=== PATIENT | male | born 1975 | race Caucasian/White ===

== ENCOUNTER 2018-11-07 06:46 | Emergency (ER) | payer OTHER ==
[~2018-11-07] VITALS: Ht 180.3 cm; Wt 97.1 kg
--- OUTSIDE RECORDS SUMMARY | 2018-11-07 06:55 | XMS REPORT | Referral Summary ---
Author Author [facility] Organization [facility] Address Unknown Phone Unavailable Care Team Providers Care Justowriter Operator Name Role Phone Kenneth Cuevas PCP Encounter VC Date(s): 04/28/16 - 04/28/16 [facility] [address] [place], [place] [address] Discharge Diagnosis: Contact dermatitis Discharge Disposition: 01-Home or Self Care Attending Physician: Pari Jones APRN Attending Physician: Provider, Immediate Care Admitting Physician: Provider, Immediate Care Vital Signs Most recent to 1 oldest [Reference Range]: Temperature Oral 36.8 degC [35.8-37.3 degC] (04/28/16 7:02 PM) Peripheral Pulse 71 bpm Rate [60-100 bpm] (04/28/16 7:02 PM) Respiratory Rate 16 br/min [14-20 br/min] (04/28/16 7:02 PM) Blood Pressure 123/82 mmHg [90-140/60-90 mmHg] (04/28/16 7:02 PM) SpO2 98 % (04/28/16 7:02 PM) Problem List Condition Effective Dates Status Health Status Informant Acid Active patient reflux(Confirmed) HTN Active patient (hypertension)(Confi rmed) Kidney Active patient stones(Confirmed) Tobacco Active patient user(Confirmed) Lt Ureteral 2009 Active Calculus(Confirmed)1 1Cystoscopy; Lt Ureteroscopy; Lithotrippsy- 773267. Allergies, Adverse Reactions, Alerts Substance Reaction Severity Status Lortab 2.5/500 N/V Mild Active meperidine Eczema (rash) Active penicillin Adverse Reaction Active Medications Calcium 600+D tabs, Oral, TID, 0 Refill(s) Start Date: 07/04/14 Status: Ordered Flomax 0.4 mg oral capsule 0.4 mg 1 caps, Oral, Daily, # 20 caps, 0 Refill(s) Start Date: 03/30/15 Status: Ordered Flomax 0.4 mg oral capsule 0.4 mg 1 caps, Oral, Daily, # 7 caps, 0 Refill(s), Pharmacy: [facility] # [id number], 1 caps Oral Daily,x7 days Start Date: 02/01/16 Stop Date: 02/08/16 Status: Ordered pantoprazole Daily, 0 Refill(s) Start Date: 07/04/14 Status: Ordered potassium citrate Oral, 0 Refill(s) Start Date: 07/04/14 Status: Ordered triamcinolone 0.5% topical cream 1 blu, Topical, TID, X 14 days, # 60 g, 0 Refill(s), Pharmacy: [facility] #[id number] Start Date: 04/28/16 Stop Date: 05/12/16 Status: Ordered Wellbutrin Oral, 0 Refill(s) Start Date: 07/04/14 Status: Ordered Results No data available for this section Immunizations No data available for this section Procedures Procedure Date Related Diagnosis Body Site Perc. Nephrostolithotomy L1 2013 Cystoscopy2 09/08/08 Appendectomy Knee joint operation Nephroscopic extraction of ureteric calculus without disintegration 1Perc. Nephrostolithotomy L/Tube/Stent Placed 2012. Left Staghorn Stone 2012. 2Cystoscopy; Lt Uretorscopy; Lithotripsy- 612012. Lt Ureteral Calculus 2008. Social History Social History Type Response Smoking Status Current every day smoker Assessment and Plan Extracted from: Title: Office Visit Note Author: Pari Jones APRN Date: 04/28/16 Assessment/Plan 1.Contact dermatitis Treatment in IC included Solu-Medrol 125 mg IM. Rx for triamcinolonecream to apply 3 times a day 14 days given with instructions on medication administration and side effects. Prescription hand hygiene and wound care. Follow-up or return for persistent or worsening symptoms. Questions were answered. Patient verbalized understanding of instructions and agreed plan. Patient left in stable condition. Ordered: methylPREDNISolone, 125 mg, IntraMuscular, Once, First Dose: 04/28/16 20:00:00 CDT, Stop Date: 04/28/16 20:00:00 CDT Office Visit Level 3 Est 88187
--- OUTSIDE RECORDS SUMMARY | 2018-11-07 06:55 | XMS REPORT | Referral Summary ---
Author Author [facility] Organization [facility] Address Unknown Phone Unavailable Care Team Providers Care Vegetable Farmer Name Role Phone Kenneth Cuevas PCP Encounter Date(s): 08/25/16 - 08/25/16 [facility] [address], [place] [address] Discharge Diagnosis: Abrasion of ear canal Discharge Disposition: 01-Home or Self Care Attending Physician: Radha Sheridan APRN Attending Physician: Provider, Immediate Care Admitting Physician: Provider, Immediate Care Vital Signs Most recent to 1 oldest [Reference Range]: Temperature Oral 36.9 degC [35.8-37.3 degC] (08/25/16 1:15 PM) Peripheral Pulse 89 bpm Rate [60-100 bpm] (08/25/16 1:15 PM) Blood Pressure 117/78 mmHg [90-140/60-90 mmHg] (08/25/16 1:15 PM) SpO2 97 % (08/25/16 1:15 PM) Problem List Condition Effective Dates Status Health Status Informant Acid Active patient reflux(Confirmed) HTN Active patient (hypertension)(Confi rmed) Kidney Active patient stones(Confirmed) Tobacco Active patient user(Confirmed) Lt Ureteral 2009 Active Calculus(Confirmed)1 1Cystoscopy; Lt Ureteroscopy; Lithotrippsy- 647660. Allergies, Adverse Reactions, Alerts Substance Reaction Severity [...] Daily, # 7 caps, 0 Refill(s), Pharmacy: [facility] # [id number], 1 caps Oral Daily,x7 days Start Date: 02/01/16 Stop Date: 02/08/16 Status: Ordered pantoprazole Daily, 0 Refill(s) Start Date: 07/04/14 Status: Ordered potassium citrate Oral, 0 Refill(s) Start Date: 07/04/14 Status: Ordered Wellbutrin Oral, 0 Refill(s) Start Date: 07/04/14 Status: Ordered Zofran ODT 4 mg oral tablet, disintegrating 4 mg 1 tabs, Oral, q6hr, Nausea or Vomiting | as needed for nausea/vomiting, # 10 tabs, 0 Refill(s), Pharmacy: [facility] #[id number], 1 tabs Oral q6hr,PRN: Nausea or Vomiting | as needed for nausea/vomiting Start Date: 07/15/16 Status: Ordered Results No data available for this section Immunizations No data available for this section Procedures Procedure Date Related Diagnosis Body Site Perc. Nephrostolithotomy L1 2013 Cystoscopy2 09/08/08 Appendectomy Knee joint operation Nephroscopic extraction of ureteric calculus without disintegration 1Perc. Nephrostolithotomy L/Tube/Stent Placed 2012. Left Staghorn Stone 2012. 2Cystoscopy; Lt Uretorscopy; Lithotripsy- 969704. Lt Ureteral Calculus 2008. Social History Social History Type Response Smoking Status Current every day smoker Assessment and Plan Extracted from: Title: Office Visit Note Author: Radha Sheridan FUSE SPOOLER Date: 08/25/16 Assessment/Plan 1.Abrasion of ear canal discussed that i am unable to see abrasion but it seems that he someone cut his ear canal, maybe in his sleep. he can use saline to soften the blood and then it will come out on its own or he can leave it alone. antihistamine for the fluids behind TM. Diagnosis and treatment discussed. Patient advised to follow-up with PCP in 2-3 days if symptoms do not improve. If symptoms worsen at any time, patient will go to the nearest ER for further evaluation. Patient stable upon discharge, alert and orientated with no apparent distress, all questions answered, and indicated understanding of discharge instructions. Ordered: Office Visit Level 3 Est 64116"
--- OUTSIDE RECORDS SUMMARY | 2018-11-07 06:55 | XMS REPORT | Referral Summary ---
Author Author [facility] Organization [facility] Address Unknown Phone Unavailable Care Team Providers Care Pricing Actuary Name Role Phone Kenneth Cuevas PCP Encounter VC Date(s): 01/26/17 - 01/26/17 [facility] [address] [place] [address] Discharge Disposition: Vital Signs Most recent to 1 oldest [Reference Range]: Temperature Oral 36.6 degC [35.8-37.3 degC] (01/26/17 1:18 AM) Peripheral Pulse 112 bpm Rate [60-100 bpm] *HI* (01/26/17 1:18 AM) Respiratory Rate 16 br/min [14-20 br/min] (01/26/17 1:18 AM) Blood Pressure 137/90 mmHg [90-140/60-90 mmHg] (01/26/17 1:18 AM) SpO2 100 % (01/26/17 1:18 AM) Problem List Condition Effective Dates Status Health Status Informant Acid Active patient reflux(Confirmed) HTN Active patient (hypertension)(Confi rmed) Kidney Active patient stones(Confirmed) Tobacco Active patient user(Confirmed) Lt Ureteral 2009 Active Calculus(Confirmed)1 1Cystoscopy; Lt Ureteroscopy; Lithotrippsy- 810523. Allergies, Adverse Reactions, Alerts Substance Reaction Severity Status Lortab 2.5/500 N/V Mild Active meperidine Eczema (rash) Active penicillin Adverse Reaction Active Medications Flomax 0.4 mg oral capsule 0.4 mg 1 caps, Oral, Daily, take after same meal each day/ Ethan Calle DO supervising physician, # 7 caps, 0 Refill(s) Start Date: 01/26/17 Status: Ordered ibuprofen 800 mg oral tablet 800 mg 1 tabs, Oral, TID, Pain, # 30 tabs, 0 Refill(s) Start Date: 01/26/17 Status: Ordered ondansetron 4 mg oral tablet 4 mg 1 tabs, Oral, q4hr, Nausea or Vomiting, # 12 tabs, 0 Refill(s) Start Date: 01/26/17 Status: Ordered pantoprazole Daily, 0 Refill(s) Start Date: 07/04/14 Status: Ordered Percocet 7.5/325 oral tablet 1 tabs, Oral, q4hr, as needed for pain, Ethan Calle DO supervising physician/ not to exceed 8 tablets/day, # 24 tabs, 0 Refill(s) Start Date: 01/26/17 Status: Ordered Results No data available for this section Immunizations No data available for this section Procedures Procedure Date Related Diagnosis Body Site Perc. Nephrostolithotomy L1 2013 Cystoscopy2 09/08/08 Appendectomy Knee joint operation Nephroscopic extraction of ureteric calculus without disintegration 1Perc. Nephrostolithotomy L/Tube/Stent Placed 2012. Left Staghorn Stone 2012. 2Cystoscopy; Lt Uretorscopy; Lithotripsy- 583172. Lt Ureteral Calculus 2008. Social History Social History Type Response Smoking Status Current every day smoker Assessment and Plan No data available for this section
--- OUTSIDE RECORDS SUMMARY | 2018-11-07 06:55 | XMS REPORT | Referral Summary ---
Author Author [facility] Organization [facility] Address Unknown Phone Unavailable Care Team Providers Care Technical Aid Name Role Phone Kenneth Cuevas PCP Encounter VC Date(s): 10/24/16 - 10/24/16 [facility] [address] [place] [address] [facility] Discharge Diagnosis: Pain Discharge Disposition: 01-Home or Self Care Attending Physician: Provider, Immediate Care Attending Physician: Nya Carmen PA-C Admitting Physician: Provider, Immediate Care Vital Signs Most recent to 1 oldest [Reference Range]: Temperature Oral 36 degC [35.8-37.3 degC] (10/24/16 1:29 PM) Peripheral Pulse 68 bpm Rate [60-100 bpm] (10/24/16 1:29 PM) Respiratory Rate 16 br/min [14-20 br/min] (10/24/16 1:29 PM) Blood Pressure 131/91 mmHg [90-140/60-90 mmHg] (10/24/16 1:29 PM) SpO2 98 % (10/24/16 1:29 PM) Problem List Condition Effective Dates Status Health Status Informant Acid Active patient reflux(Confirmed) HTN Active patient (hypertension)(Confi rmed) Kidney Active patient stones(Confirmed) Tobacco Active patient user(Confirmed) Lt Ureteral 2009 Active Calculus(Confirmed)1 1Cystoscopy; Lt Ureteroscopy; Lithotrippsy- 539916. Allergies, Adverse Reactions, Alerts Substance Reaction Severity [...] Daily, # 7 caps, 0 Refill(s), Pharmacy: [facility] # [id number], 1 caps Oral Daily,x7 days Start Date: [...] nausea/vomiting, # 10 tabs, 0 Refill(s), Pharmacy: [facility] #[id number], 1 tabs Oral q6hr,PRN: Nausea or Vomiting | as needed for nausea/vomiting Start Date: 07/15/16 Status: Ordered Results Urinalysis Most recent to 1 oldest [Reference Range]: Leukocytes Urine Negative Dipstick (10/24/16 1:39 PM) Nitrite Urine Negative Dipstick (10/24/16 1:39 PM) Urobilinogen Urine 0.2 mg/dl Dipstick (10/24/16 1:39 PM) Protein Urine 1+ (30 mg/dl) Dipstick (10/24/16 1:39 PM) pH Urine Dipstick 6 (10/24/16 1:39 PM) Ketones Urine Negative Dipstick (10/24/16 1:39 PM) Blood Urine Dipstick Small (10/24/16 1:39 PM) Bilirubin Urine Negative Dipstick (10/24/16 1:39 PM) Specific [place] 1.025 Urine Dipstick (10/24/16 1:39 PM) Glucose Urine Negative Dipstick (10/24/16 1:39 PM) Urine Color Urine Yellow Dipstick (10/24/16 1:39 PM) Urine Appearance Clear Urine Dipstick (10/24/16 1:39 PM) Immunizations No data available for this section Procedures Procedure Date Related Diagnosis Body Site Perc. Nephrostolithotomy L1 2013 Cystoscopy2 09/08/08 Appendectomy Knee joint operation Nephroscopic extraction of ureteric calculus without disintegration 1Perc. Nephrostolithotomy L/Tube/Stent Placed 2012. Left Staghorn Stone 2012. 2Cystoscopy; Lt Uretorscopy; Lithotripsy- 347081. Lt Ureteral Calculus 2008. Social History Social History Type Response Smoking Status Current every day smoker Assessment and Plan Extracted from: Title: Office Visit Note Author: Nya Carmen PA-C Date: 10/24/16 Assessment/Plan I reviewed my findings and impressions and the CT results with patient and family at length. Iexplained that there are nonobstructive renal calculi present but no evidence of a ureteral calculus, or hydroureteronephrosis. I explained that it is possible he could have passed a stone is having residual ureteral colic from it. Patient states that he feels the exact same as he had in the past with a ureteral stone. Based on my testicular exam the pain does not appear to be a testicular in origin but of referred pain. Patient will continue symptomatic management over the weekend and if his pain worsens or he develops new symptoms he will contact his urologist on-call or go to the emergency department. He and family are in agreement with this plan and he is dismissed in stable condition. Abdominal pain Ordered: Office Visit Level 4 Est 97348 Hematuria Ordered: Office Visit Level 4 Est 94472 Hx of renal colic Ordered: Office Visit Level 4 Est 41362 Pain"
--- OUTSIDE RECORDS SUMMARY | 2018-11-07 06:55 | XMS REPORT | Referral Summary ---
Author Author [facility] Organization [facility] Address Unknown Phone Unavailable Care Team Providers Care County Engineer Name Role Phone Kenneth Cuevas PCP Encounter VC Date(s): 04/03/15 - 04/03/15 [facility] [address] [place] [address] [facility] Discharge Diagnosis: Nephrolithiasis Discharge Disposition: 01-Home or Self Care Attending Physician: Provider, Immediate Care Admitting Physician: Provider, Immediate Care Vital Signs Most recent to 1 oldest [Reference Range]: Temperature Oral 36.7 degC [35.8-37.3 degC] (04/03/15 8:40 AM) Peripheral Pulse 75 bpm Rate [60-100 bpm] (04/03/15 8:40 AM) Blood Pressure 128/78 mmHg [90-140/60-90 mmHg] (04/03/15 8:40 AM) SpO2 97 % (04/03/15 8:40 AM) Problem List Condition Effective Dates Status Health Status Informant Acid Active patient reflux(Confirmed) HTN Active patient (hypertension)(Confi rmed) Kidney Active patient stones(Confirmed) Tobacco Active patient user(Confirmed) Lt Ureteral 2009 Active Calculus(Confirmed)1 1Cystoscopy; Lt Ureteroscopy; Lithotrippsy- 154804. Allergies, Adverse Reactions, Alerts Substance Reaction Severity Status Lortab 2.5/500 N/V Mild Active meperidine Eczema (rash) Active penicillin Adverse Reaction Active Medications Calcium 600+D tabs, Oral, TID, 0 Refill(s) Start Date: 07/04/14 Status: Ordered Flomax 0.4 mg oral capsule 0.4 mg 1 caps, Oral, Daily, # 20 caps, 0 Refill(s) Start Date: 03/30/15 Status: Ordered pantoprazole Daily, 0 Refill(s) Start [...] Staghorn Stone 2012. 2Cystoscopy; Lt Uretorscopy; Lithotripsy- 015395. Lt Ureteral Calculus 2008. Social History Social History Type Response Smoking Status Current every day smoker; Type: Cigarettes; Tobacco use per day: Pack Assessment and Plan Extracted from: Title: Office Visit Note Author: Andrew Mcdaniel PA-C Date: 04/03/15 Assessment/Plan 1.Nephrolithiasis CT scan shows a 5 mm stone in ureter, no hydronephrosis. Pain improved with Toradol IM.Pt instructed to follow-up with his urologist. Diagnosis and treatment discussed. If symptoms worsen at any time, patient will go to the nearest ER for further evaluation. Patient stable upon discharge, alert and orientated with no apparent distress, and indicated understanding of discharge instructions. Ordered: Office Visit Level 3 Est 72001 Kidney infection Ordered: CT Abdomen Pelvis w/o Contrast
--- OUTSIDE RECORDS SUMMARY | 2018-11-07 06:56 | XMS REPORT | Referral Summary ---
Author Author [facility] Organization [facility] Address Unknown Phone Unavailable Care Team Providers Care Etcher Machine Name Role Phone Kenneth Cuevas PCP Encounter VC Date(s): 11/15/17 - 11/15/17 [facility] [address] [place] [address] Encounter Diagnosis Urolithiasis (Discharge Diagnosis) - 11/15/17 Bilateral nephrolithiasis (Discharge Diagnosis) - 11/15/17 Discharge Disposition: 01-Home or Self Care Attending Physician: Matt Olmstead JR, MD Admitting Physician: Matt Olmstead JR, MD Vital Signs Most recent to 1 oldest [Reference Range]: Temperature Oral 36.7 degC [35.8-37.3 degC] (11/15/17 8:30 PM) Peripheral Pulse 82 bpm Rate [60-100 bpm] (11/15/17 9:52 PM) Respiratory Rate 18 br/min [14-20 br/min] (11/15/17 10:23 PM) Blood Pressure 136/81 mmHg [90-140/60-90 mmHg] (11/15/17 9:52 PM) SpO2 97 % (11/15/17 9:52 PM) Problem List Condition Effective Dates Status Health Status Informant Acid Active patient reflux(Confirmed) HTN Active patient (hypertension)(Confi rmed) Kidney Active patient stones(Confirmed) Tobacco Active patient user(Confirmed) Lt Ureteral 2009 Active Calculus(Confirmed)1 1Cystoscopy; Lt Ureteroscopy; Lithotrippsy- 387798. Allergies, Adverse Reactions, Alerts Substance Reaction Severity Status meperidine Eczema (rash) Active penicillin Adverse Reaction Active Lortab 2.5/500 N/V Mild Active Medications Keflex 500 mg oral capsule 500 mg 1 caps, Oral, QID, X 7 days, # 28 caps, 0 Refill(s) Start Date: 11/15/17 Stop Date: 11/22/17 Status: Ordered ketorolac 10 mg oral tablet 10 mg 1 tabs, Oral, QID, as needed for pain, not to exceed 40 mg/day and 5 days duration for all dose forms, # 4 tabs, 0 Refill(s) Start Date: 11/15/17 Stop Date: 11/22/17 Status: Ordered oxyCODONE 10 mg oral tablet 10 mg 1 tabs, Oral, q4hr, as needed for pain, # 14 tabs, 0 Refill(s) Start Date: 11/15/17 Stop Date: 11/22/17 Status: Ordered Zofran ODT 4 mg oral tablet, disintegrating 4 mg 1 tabs, Oral, q4hr, Nausea or Vomiting | as needed for nausea/vomiting, # 10 tabs, 0 Refill(s) Start Date: 11/15/17 Status: Ordered Results Hematology Most recent to 1 oldest [Reference Range]: WBC [4.8-10.8 11.1 10*3/uL 10*3/uL] *HI* (11/15/17 8:36 PM) RBC [4.60-6.20] 5.59 (11/15/17 8:36 PM) Hgb [14.0-18.0 16.7 gm/dL gm/dL] (11/15/17 8:36 PM) Hct [42.0-52.0 %] 49.4 % (11/15/17 8:36 PM) MCV [82.0-99.0 fL] 88.4 fL (11/15/17 8:36 PM) MCH [27.0-32.0 pg] 29.9 pg (11/15/17 8:36 PM) MCHC [32.0-36.0 33.8 gm/dL gm/dL] (11/15/17 8:36 PM) RDW [11.5-14.5 %] 13.4 % (11/15/17 8:36 PM) Platelet [150-400 330 10*3/uL 10*3/uL] (11/15/17 8:36 PM) MPV [9.4-12.3 fL] 9.6 fL (11/15/17 8:36 PM) Immature 0.4 % Granulocytes (11/15/17 8:36 PM) [0.0-1.0 %] Neutrophils [51-75 51 % %] (11/15/17 8:36 PM) Lymphocytes [20-46 35 % %] (11/15/17 8:36 PM) Monocytes [4-11 %] 10 % (11/15/17 8:36 PM) Eosinophils [0-4 %] 3 % (11/15/17 8:36 PM) Basophils [0-2 %] 0 % (11/15/17 8:36 PM) Neutro Absolute 5.65 [1.90-7.00] (11/15/17 8:36 PM) Lymph Absolute 3.93 [0.80-3.30] *HI* (11/15/17 8:36 PM) [place] Absolute 1.09 [0.30-1.00] *HI* (11/15/17 8:36 PM) Eos Absolute 0.37 [0.00-0.50] (11/15/17 8:36 PM) Baso Absolute 0.05 [0.00-0.20] (11/15/17 8:36 PM) Chemistry Most recent to 1 oldest [Reference Range]: Sodium Lvl [136-144 135 mEq/L mEq/L] *LOW* (11/15/17 8:36 PM) Potassium Lvl 3.4 mEq/L [3.6-5.1 mEq/L] *LOW* (11/15/17 8:36 PM) Chloride [99-109 102 mEq/L mEq/L] (11/15/17 8:36 PM) CO2 [22-32 mEq/L] 24 mEq/L (11/15/17 8:36 PM) AGAP [3-20 mEq/L] 9 mEq/L (11/15/17 8:36 PM) BUN [4-20 mg/dL] 13 mg/dL (11/15/17 8:36 PM) Glucose Lvl [70-100 148 mg/dL mg/dL] *HI* (11/15/17 8:36 PM) Creatinine Lvl 0.94 mg/dL [0.64-1.27 mg/dL] (11/15/17 8:36 PM) eGFR [>60 mL/min] >60 mL/min 1 (11/15/17 8:36 PM) Calcium Lvl 9.2 mg/dL [8.6-10.0 mg/dL] (11/15/17 8:36 PM) Albumin Lvl [3.5-4.8 4.3 gm/dL gm/dL] (11/15/17 8:36 PM) Total Protein 7.9 gm/dL [6.1-7.9 gm/dL] (11/15/17 8:36 PM) Globulin [1.9-4.3 3.6 gm/dL gm/dL] (11/15/17 8:36 PM) ALT [17-63 U/L] 61 U/L (11/15/17 8:36 PM) AST [15-41 U/L] 39 U/L (11/15/17 8:36 PM) Alk Phos [26-104 107 U/L U/L] *HI* (11/15/17 8:36 PM) Bili Total [0.2-1.2 0.7 mg/dL 2 mg/dL] (11/15/17 8:36 PM) Lipase Lvl [8-48 44 U/L U/L] (11/15/17 8:36 PM) 1Result Comment: Multiply eGFR results by 1.21 for race. 2Result Comment: Naproxen, specifically the metabolite O-desmethylnaproxen, may cause spurious elevation in Total Bilirubin levels. Urinalysis Most recent to 1 oldest [Reference Range]: UA Color Dk Yellow (11/15/17 9:04 PM) UA Appear Clear (11/15/17 9:04 PM) UA pH [5.0-8.0] 6.5 (11/15/17 9:04 PM) UA Leuk Est Trace [Negative] *ABN* (11/15/17 9:04 PM) UA Nitrite Negative [Negative] (11/15/17 9:04 PM) UA Protein Pos 1+ [Negative] *ABN* (11/15/17 9:04 PM) UA Glucose Negative [Negative] (11/15/17 9:04 PM) UA Ketones Negative [Negative] (11/15/17 9:04 PM) UA Urobilinogen Negative [<1.0] (11/15/17 9:04 PM) UA Bili [Negative] Negative (11/15/17 9:04 PM) UA Blood [Negative] Pos 3+ *ABN* (11/15/17 9:04 PM) UA Spec Grav 1.021 [1.003-1.030] (11/15/17 9:04 PM) Type Clean Catch (11/15/17 9:04 PM) UA WBC [0-4] 10-20 *ABN* (11/15/17 9:04 PM) UA RBC [0-2] 20-50 *ABN* (11/15/17 9:04 PM) Epithelial Cells 0-2 (11/15/17 9:04 PM) UA Bacteria Rare (11/15/17 9:04 PM) UA Mucous Present (11/15/17 9:04 PM) Immunizations No data available for this section Procedures Procedure Date Related Diagnosis Body Site Status Perc. Nephrostolithotomy L1 2012 Completed Cystoscopy2 09/08/08 Completed Appendectomy Completed Knee joint operation Completed Nephroscopic extraction of ureteric calculus Completed without disintegration 1Perc. Nephrostolithotomy L/Tube/Stent Placed 2012. Left Staghorn Stone 2012. 2Cystoscopy; Lt Uretorscopy; Lithotripsy- [id number]. Lt Ureteral Calculus 2008. Social History Social History Type Response Smoking Status Current every day smoker entered on: 07/15/16 Assessment and Plan No data available for this section"
--- OUTSIDE RECORDS SUMMARY | 2018-11-07 06:56 | XMS REPORT | Referral Summary ---
Author Author [facility] Organization [facility] Address Unknown Phone Unavailable Care Team Providers Care Red Hat Engineer Name Role Phone Kenneth Cuevas PCP Encounter [facility] [id number] Date(s): 12/04/14 - 12/04/14 [facility] [address] [place] [address] [phone] Discharge Diagnosis: Left ureteral calculus Final: CALCULUS OF URETER Final: HYDRONEPHROSIS Final: CALCULUS OF KIDNEY Final: TOBACCO USE DISORDER Discharge Disposition: 01-Home or Self Care Attending Physician: Matt Olmstead JR, MD Admitting Physician: Matt Olmstead JR, MD Vital Signs Most recent to 1 oldest [Reference Range]: Temperature Oral 36.6 degC [35.8-37.3 degC] (12/04/14 1:27 AM) Peripheral Pulse 94 bpm Rate [60-100 bpm] (12/04/14 2:45 AM) Respiratory Rate 20 br/min [14-20 br/min] (12/04/14 2:45 AM) Blood Pressure 117/79 mmHg [90-140/60-90 mmHg] (12/04/14 2:45 AM) SpO2 95 % (12/04/14 2:45 AM) Problem List Condition Effective Dates Status Health Status Informant Acid Active patient reflux(Confirmed) HTN Active patient (hypertension)(Confi rmed) Kidney Active patient stones(Confirmed) Tobacco Active patient user(Confirmed) Allergies, Adverse Reactions, Alerts Substance Reaction Severity [...] Refill(s) Start Date: 07/04/14 Status: Ordered Results Chemistry Most recent to 1 oldest [Reference Range]: Sodium Venous 142 mEq/L [136-144 mEq/L] (12/04/14 2:39 AM) Potassium Venous 3.3 mEq/L 1 [3.6-5.1 mEq/L] *LOW* (12/04/14 2:39 AM) Calcium Ionized 1.14 mmol/L Venous [1.19-1.41 *LOW* mmol/L] (12/04/14 2:39 AM) Total CO2 Venous 22 mEq/L [25-29 mEq/L] *LOW* (12/04/14 2:39 AM) HGB Venous NPT 14.6 gm/dL [14.0-18.0 gm/dL] (12/04/14 2:39 AM) HCT Venous 43.0 % [42.0-52.0 %] (12/04/14 2:39 AM) Glucose Venous 129 mg/dL [70-100 mg/dL] *HI* (12/04/14 2:39 AM) BUN Venous [4-20] 7 (12/04/14 2:39 AM) Creatinine Venous 1.0 mg/dL [0.7-1.2 mg/dL] (12/04/14 2:39 AM) Venous CL [99-109 102 mEq/L mEq/L] (12/04/14 2:39 AM) Anion Gap, Jesus 18 [3-20] (12/04/14 2:39 AM) 1Result Comment: This test was performed on a whole blood specimen. The presence or absence of hemolysis cannot be assessed. Hemolysis can falsely elevate potassium levels. Normals are for venous specimens only. Immunizations No data available for this section Procedures Procedure Date Related Diagnosis Body Site Appendectomy Knee joint operation Nephroscopic extraction of ureteric calculus without disintegration Social History Social History Type Response Smoking Status Current every day smoker; Type: Cigarettes; Tobacco use per day: Pack Assessment and Plan No data available for this section
--- OUTSIDE RECORDS SUMMARY | 2018-11-07 06:56 | XMS REPORT | Referral Summary ---
Author Author [facility] Organization [facility] Address Unknown Phone Unavailable Care Team Providers Care Financial Assistant Name Role Phone Kenneth Cuevas PCP Encounter Date(s): 04/13/16 - 04/13/16 [facility] [address] [place], [place] [address] Discharge Diagnosis: Bilateral otitis media Discharge Diagnosis: Pharyngitis Discharge Disposition: 01-Home or Self Care Attending Physician: Gia Felipe Attending Physician: Provider, Immediate Care Admitting Physician: Provider, Immediate Care Vital Signs Most recent to 1 oldest [Reference Range]: Temperature Oral 36.5 degC [35.8-37.3 degC] (04/13/16 9:33 AM) Peripheral Pulse 69 bpm Rate [60-100 bpm] (04/13/16 9:33 AM) Blood Pressure 126/78 mmHg [90-140/60-90 mmHg] (04/13/16 9:33 AM) SpO2 98 % (04/13/16 9:33 AM) Problem List Condition Effective Dates Status Health Status Informant Acid Active patient reflux(Confirmed) HTN Active patient (hypertension)(Confi rmed) Kidney Active patient stones(Confirmed) Tobacco Active patient user(Confirmed) Lt Ureteral 2009 Active Calculus(Confirmed)1 1Cystoscopy; Lt Ureteroscopy; Lithotrippsy- 902239. Allergies, Adverse Reactions, Alerts Substance Reaction Severity Status Lortab 2.5/500 N/V Mild Active meperidine Eczema (rash) Active penicillin Adverse Reaction Active Medications Calcium 600+D tabs, Oral, TID, 0 Refill(s) Start Date: 07/04/14 Status: Ordered cephalexin 500 mg oral capsule 500 mg 1 caps, Oral, q12hr, X 10 days, # 20 caps, 0 Refill(s), Pharmacy: [facility] #[id number], 1 caps Oral q12hr,x10 days Start Date: 04/13/16 Stop Date: 04/23/16 Status: Ordered Flomax 0.4 mg oral capsule 0.4 mg 1 caps, Oral, Daily, # 20 caps, 0 Refill(s) Start Date: 03/30/15 Status: Ordered Flomax 0.4 mg oral capsule 0.4 mg 1 caps, Oral, Daily, # 7 caps, 0 Refill(s), Pharmacy: [facility] # [id number], 1 caps Oral Daily,x7 days Start Date: [...] Staghorn Stone 2012. 2Cystoscopy; Lt Uretorscopy; Lithotripsy- [id number]. Lt Ureteral Calculus 2008. Social History Social History Type Response Smoking Status Current every day smoker Assessment and Plan Extracted from: Title: Office Visit Note Author: Gia Felipe Date: 04/13/16 Assessment/Plan 1.Bilateral otitis media - cephalexin as below - follow up with PCP as needed if not improving in next 2-3 days 2.Pharyngitis - no culture done as cephalexin will cover if it is strep but that is of low suspicion - tylenol/motrin as needed for pain/fever - Patient voiced understanding and agreed with treatment plan. Patient dismissed in stable condition. Orders: cephalexin, 500 mg 1 caps, Oral, q12hr, X 10 days, # 20 caps, 0 Refill (s), Pharmacy: [facility] #[id number], 1 caps Oral q12hr,x10 days
--- OUTSIDE RECORDS SUMMARY | 2018-11-07 06:56 | XMS REPORT | Referral Summary ---
Author Author [facility] Organization [facility] Address Unknown Phone Unavailable Care Team Providers Care Classified Ad Clerk Name Role Phone Kenneth Cuevas PCP Encounter [facility] [id number] Date(s): 02/03/16 - 02/03/16 [facility] [address] [place] [address] Discharge Diagnosis: Left nephrolithiasis Discharge Disposition: 01-Home or Self Care Attending Physician: Garret Muñoz MD Admitting Physician: Francesco Candelaria MD Vital Signs Most recent to 1 oldest [Reference Range]: Temperature Oral 36.6 degC [35.8-37.3 degC] (02/03/16 11:56 AM) Apical Heart Rate 76 bpm [60-100 bpm] (02/03/16 1:48 PM) Respiratory Rate 16 br/min [14-20 br/min] (02/03/16 1:48 PM) Blood Pressure 143/91 mmHg [90-140/60-90 mmHg] *HI* (02/03/16 11:56 AM) SpO2 97 % (02/03/16 11:56 AM) Problem List Condition Effective Dates Status Health Status Informant Acid Active patient reflux(Confirmed) HTN Active patient (hypertension)(Confi rmed) Kidney Active patient stones(Confirmed) Tobacco Active patient user(Confirmed) Lt Ureteral 2009 Active Calculus(Confirmed)1 1Cystoscopy; Lt Ureteroscopy; Lithotrippsy- 967968. Allergies, Adverse Reactions, Alerts Substance Reaction Severity [...] Daily, # 7 caps, 0 Refill(s), Pharmacy: [facility] # [id number], 1 caps Oral Daily,x7 days Start Date: 02/01/16 Stop Date: 02/08/16 Status: Ordered ketorolac 10 mg oral tablet 10 mg 1 tabs, Oral, TID, as needed for pain, not to exceed 40 mg/day and 5 days duration for all dose forms, X 5 days, # 15 tabs, 0 Refill(s) Start Date: 02/03/16 Stop Date: 02/08/16 Status: Ordered pantoprazole Daily, 0 Refill(s) Start Date: 07/04/14 Status: Ordered Percocet 5/325 oral tablet See Instructions, as needed for pain, take 1 to 2 tabs Oral q6hr, # 30 tabs, 0 Refill(s) Start Date: 02/01/16 Stop Date: 02/05/16 Status: Ordered potassium citrate Oral, 0 Refill(s) Start Date: 07/04/14 Status: Ordered Wellbutrin Oral, 0 Refill(s) Start Date: 07/04/14 Status: Ordered Zofran 8 mg oral tablet 8 mg 1 tabs, Oral, TID, X 2 days, # 6 tabs, 1 Refill(s), Pharmacy: [facility] #[id number], 1 tabs Oral TID,x2 days Start Date: 02/01/16 Stop Date: 02/05/16 Status: Ordered Results Chemistry Most recent to 1 oldest [Reference Range]: Sodium Venous 140 mEq/L [136-144 mEq/L] (02/03/16 12:30 PM) Potassium Venous 3.5 mEq/L 1 [3.6-5.1 mEq/L] *LOW* (02/03/16 12:30 PM) Calcium Ionized 1.26 mmol/L Venous [1.19-1.41 (02/03/16 12:30 PM) mmol/L] Total CO2 Venous 22 mEq/L [25-29 mEq/L] *LOW* (02/03/16 12:30 PM) HGB Venous NPT 16.7 gm/dL [14.0-18.0 gm/dL] (02/03/16 12:30 PM) HCT Venous 49.0 % [42.0-52.0 %] (02/03/16 12:30 PM) Glucose Venous 171 mg/dL [70-100 mg/dL] *HI* (02/03/16 12:30 PM) BUN Venous [4-20] 12 (02/03/16 12:30 PM) Creatinine Venous 0.7 mg/dL [0.7-1.2 mg/dL] (02/03/16 12:30 PM) Venous CL [99-109 103 mEq/L mEq/L] (02/03/16 12:30 PM) Anion Gap, Jesus 15 [3-20] (02/03/16 12:30 PM) 1Result Comment: This test was performed on a whole blood specimen. The presence or absence of hemolysis cannot be assessed. Hemolysis can falsely elevate potassium levels. Normals are for venous specimens only. Urinalysis Most recent to 1 oldest [Reference Range]: UA Color Yellow (02/03/16 1:05 PM) UA Appear Clear (02/03/16 1:05 PM) UA pH [5.0-8.0] 7.0 (02/03/16 1:05 PM) UA Leuk Est Negative [Negative] (02/03/16 1:05 PM) UA Nitrite Negative [Negative] (02/03/16 1:05 PM) UA Protein Negative [Negative] (02/03/16 1:05 PM) UA Glucose Pos 1+ [Negative] *ABN* (02/03/16 1:05 PM) UA Ketones Negative [Negative] (02/03/16 1:05 PM) UA Urobilinogen 1.0 mg/dL [<1.0 mg/dL] (02/03/16 1:05 PM) UA Bili [Negative] Negative (02/03/16 1:05 PM) UA Blood [Negative] Negative (02/03/16 1:05 PM) UA Spec Grav 1.021 [1.003-1.030] (02/03/16 1:05 PM) Type Clean Catch (02/03/16 1:05 PM) Immunizations No data available for this section Procedures Procedure Date Related Diagnosis Body Site Perc. Nephrostolithotomy L1 2013 Cystoscopy2 09/08/08 Appendectomy Knee joint operation Nephroscopic extraction of ureteric calculus without disintegration 1Perc. Nephrostolithotomy L/Tube/Stent Placed 2012. Left Staghorn Stone 2012. 2Cystoscopy; Lt Uretorscopy; Lithotripsy- [id number]. Lt Ureteral Calculus 2008. Social History Social History Type Response Smoking Status Current every day smoker; Type: Cigarettes; Tobacco use per day: Pack Assessment and Plan No data available for this section
--- OUTSIDE RECORDS SUMMARY | 2018-11-07 06:56 | XMS REPORT | Referral Summary ---
Author Author [facility] Organization [facility] Address Unknown Phone Unavailable Care Team Providers Care Blender Conveyor Operator Name Role Phone Kenneth Cuevas PCP Encounter [facility] Date(s): 01/26/17 - 01/26/17 [facility] [address] [place] [address] Discharge Diagnosis: Calculus of proximal left ureter Discharge Diagnosis: Leukocytosis Discharge Disposition: 01-Home or Self Care Attending Physician: Jaime Tam MD Admitting Physician: Jaime Tam MD Vital Signs Most recent to 1 oldest [Reference Range]: Temperature Oral 37.0 degC [35.8-37.3 degC] (01/26/17 5:39 PM) Peripheral Pulse 75 bpm Rate [60-100 bpm] (01/26/17 8:33 PM) Respiratory Rate 18 br/min [14-20 br/min] (01/26/17 8:33 PM) Blood Pressure 127/86 mmHg [90-140/60-90 mmHg] (01/26/17 8:33 PM) SpO2 96 % (01/26/17 7:12 PM) Problem List Condition Effective Dates Status Health Status Informant Acid Active patient reflux(Confirmed) HTN Active patient (hypertension)(Confi rmed) Kidney Active patient stones(Confirmed) Tobacco Active patient user(Confirmed) Lt Ureteral 2009 Active Calculus(Confirmed)1 1Cystoscopy; Lt Ureteroscopy; Lithotrippsy- 489905. Allergies, Adverse Reactions, Alerts Substance Reaction Severity [...] Refill(s) Start Date: 01/26/17 Status: Ordered Results Hematology Most recent to 1 oldest [Reference Range]: WBC [4.8-10.8 14.4 10*3/uL 10*3/uL] *HI* (01/26/17 5:54 PM) RBC [4.60-6.20] 5.73 (01/26/17 5:54 PM) Hgb [14.0-18.0 17.1 gm/dL gm/dL] (01/26/17 5:54 PM) Hct [42.0-52.0 %] 49.5 % (01/26/17 5:54 PM) MCV [82.0-99.0 fL] 86.4 fL (01/26/17 5:54 PM) MCH [27.0-32.0 pg] 29.8 pg (01/26/17 5:54 PM) MCHC [32.0-36.0 34.5 gm/dL gm/dL] (01/26/17 5:54 PM) RDW [11.5-14.5 %] 13.9 % (01/26/17 5:54 PM) Platelet [150-400 392 10*3/uL 10*3/uL] (01/26/17 5:54 PM) MPV [9.4-12.3 fL] 9.4 fL (01/26/17 5:54 PM) Immature 0.3 % Granulocytes (01/26/17 5:54 PM) [0.0-1.0 %] Neutrophils [51-75 69 % %] (01/26/17 5:54 PM) Lymphocytes [20-46 22 % %] (01/26/17 5:54 PM) Monocytes [4-11 %] 8 % (01/26/17 5:54 PM) Eosinophils [0-4 %] 1 % (01/26/17 5:54 PM) Basophils [0-2 %] 0 % (01/26/17 5:54 PM) Neutro Absolute 9.96 [1.90-7.00] *HI* (01/26/17 5:54 PM) Lymph Absolute 3.20 [0.80-3.30] (01/26/17 5:54 PM) [place] Absolute 1.09 [0.30-1.00] *HI* (01/26/17 5:54 PM) Eos Absolute 0.09 [0.00-0.50] (01/26/17 5:54 PM) Baso Absolute 0.02 [0.00-0.20] (01/26/17 5:54 PM) Chemistry Most recent to 1 oldest [Reference Range]: Sodium Lvl [136-144 138 mEq/L mEq/L] (01/26/17 5:54 PM) Potassium Lvl 3.7 mEq/L [3.6-5.1 mEq/L] (01/26/17 5:54 PM) Chloride [99-109 100 mEq/L mEq/L] (01/26/17 5:54 PM) CO2 [22-32 mEq/L] 26 mEq/L (01/26/17 5:54 PM) AGAP [3-20 mEq/L] 12 mEq/L (01/26/17 5:54 PM) BUN [4-20 mg/dL] 9 mg/dL (01/26/17 5:54 PM) Glucose Lvl [70-100 101 mg/dL mg/dL] *HI* (01/26/17 5:54 PM) Creatinine Lvl 0.86 mg/dL [0.64-1.27 mg/dL] (01/26/17 5:54 PM) eGFR [>60 mL/min] >60 mL/min 1 (01/26/17 5:54 PM) Calcium Lvl 10.8 mg/dL [8.6-10.0 mg/dL] *HI* (01/26/17 5:54 PM) Albumin Lvl [3.5-4.8 4.5 gm/dL gm/dL] (01/26/17 5:54 PM) Total Protein 8.1 gm/dL [6.1-7.9 gm/dL] *HI* (01/26/17 5:54 PM) Globulin [1.9-4.3 3.6 gm/dL gm/dL] (01/26/17 5:54 PM) ALT [17-63 U/L] 62 U/L (01/26/17 5:54 PM) AST [15-41 U/L] 49 U/L *HI* (01/26/17 5:54 PM) Alk Phos [26-104 116 U/L U/L] *HI* (01/26/17 5:54 PM) Bili Total [0.2-1.2 1.0 mg/dL 2 mg/dL] (01/26/17 5:54 PM) Lipase Lvl [8-48 27 U/L U/L] (01/26/17 5:54 PM) 1Result Comment: Multiply eGFR results by 1.21 for race. 2Result Comment: Naproxen, specifically the metabolite O-desmethylnaproxen, may cause spurious elevation in Total Bilirubin levels. Urinalysis Most recent to 1 oldest [Reference Range]: UA Color Dk Yellow (01/26/17 5:54 PM) UA Appear Clear (01/26/17 5:54 PM) UA pH [5.0-8.0] 6.5 (01/26/17 5:54 PM) UA Leuk Est Trace [Negative] *ABN* (01/26/17 5:54 PM) UA Nitrite Negative [Negative] (01/26/17 5:54 PM) UA Protein Pos 1+ [Negative] *ABN* (01/26/17 5:54 PM) UA Glucose TRACE [Negative] (01/26/17 5:54 PM) UA Ketones Negative [Negative] (01/26/17 5:54 PM) UA Urobilinogen Negative [<1.0] (01/26/17 5:54 PM) UA Bili [Negative] Negative (01/26/17 5:54 PM) UA Blood [Negative] Pos 3+ *ABN* (01/26/17 5:54 PM) UA Spec Grav 1.018 [1.003-1.030] (01/26/17 5:54 PM) Type Clean Catch (01/26/17 5:54 PM) UA WBC [0-4] 0-2 (01/26/17 5:54 PM) UA RBC [0-2 /HPF] >50 /HPF *ABN* (01/26/17 5:54 PM) Epithelial Cells 0-2 (01/26/17 5:54 PM) Crystals Amorphous (01/26/17 5:54 PM) UA Mucous Present (01/26/17 5:54 PM) Immunizations No data available for this section Procedures Procedure Date Related Diagnosis Body Site Perc. Nephrostolithotomy L1 2013 Cystoscopy2 09/08/08 Appendectomy Knee joint operation Nephroscopic extraction of ureteric calculus without disintegration 1Perc. Nephrostolithotomy L/Tube/Stent Placed 2012. Left Staghorn Stone 2012. 2Cystoscopy; Lt Uretorscopy; Lithotripsy- 387207. Lt Ureteral Calculus 2008. Social History Social History Type Response Smoking Status Current every day smoker Assessment and Plan No data available for this section
--- OUTSIDE RECORDS SUMMARY | 2018-11-07 06:56 | XMS REPORT | Referral Summary ---
Author Author [facility] Organization [facility] Address Unknown Phone Unavailable Care Team Providers Care Roll Over Press Operator Name Role Phone Kenneth Cuevas PCP Encounter [facility] Date(s): 03/30/15 - 03/30/15 [facility] [address] [place] [address] Discharge Diagnosis: Renal colic Discharge Diagnosis: Kidney stone Final: CALCULUS OF KIDNEY Final: RENAL COLIC Final: HYDRONEPHROSIS Discharge Diagnosis: Abdominal pain Discharge Disposition: 01-Home or Self Care Attending Physician: Harpreet Cabrera DO Admitting Physician: Harpreet Cabrera DO Vital Signs Most recent to 1 oldest [Reference Range]: Temperature Oral 36.3 degC [35.8-37.3 degC] (03/30/15 3:11 AM) Peripheral Pulse 73 bpm Rate [60-100 bpm] (03/30/15 3:11 AM) Heart Rate Monitored 89 bpm [60-100 bpm] (03/30/15 5:00 AM) Respiratory Rate 18 br/min [14-20 br/min] (03/30/15 5:00 AM) Blood Pressure 123/82 mmHg [90-140/60-90 mmHg] (03/30/15 5:00 AM) Mean Arterial 97 mmHg Pressure, Cuff (03/30/15 5:00 AM) SpO2 98 % (03/30/15 5:00 AM) Problem List Condition Effective Dates Status Health Status Informant Acid Active patient reflux(Confirmed) HTN Active patient (hypertension)(Confi rmed) Kidney Active patient stones(Confirmed) Tobacco Active patient user(Confirmed) Lt Ureteral 2009 Active Calculus(Confirmed)1 1Cystoscopy; Lt Ureteroscopy; Lithotrippsy- 209804. Allergies, Adverse Reactions, Alerts Substance Reaction Severity [...] Refill(s) Start Date: 07/04/14 Status: Ordered Results Hematology Most recent to 1 oldest [Reference Range]: WBC [4.8-10.8 12.3 10*3/uL 10*3/uL] *HI* (03/30/15 3:33 AM) RBC [4.60-6.20] 5.17 (03/30/15 3:33 AM) Hgb [14.0-18.0 15.4 gm/dL gm/dL] (03/30/15 3:33 AM) Hct [42.0-52.0 %] 43.8 % (03/30/15 3:33 AM) MCV [82.0-99.0 fL] 84.7 fL (03/30/15 3:33 AM) MCH [27.0-32.0 pg] 29.8 pg (03/30/15 3:33 AM) MCHC [32.0-36.0 35.2 gm/dL gm/dL] (03/30/15 3:33 AM) RDW [11.5-14.5 %] 14.8 % *HI* (03/30/15 3:33 AM) Platelet [150-400 329 10*3/uL 10*3/uL] (03/30/15 3:33 AM) MPV [9.4-12.3 fL] 9.7 fL (03/30/15 3:33 AM) Immature 0.2 % Granulocytes (03/30/15 3:33 AM) [0.0-1.0 %] Neutrophils [51-75 69 % %] (03/30/15 3:33 AM) Lymphocytes [20-46 23 % %] (03/30/15 3:33 AM) Monocytes [4-11 %] 7 % (03/30/15 3:33 AM) Eosinophils [0-4 %] 2 % (03/30/15 3:33 AM) Basophils [0-2 %] 0 % (03/30/15 3:33 AM) Neutro Absolute 8.42 10*3 [1.90-7.00 10*3] *HI* (03/30/15 3:33 AM) Lymph Absolute 2.78 10*3 [0.80-3.30 10*3] (03/30/15 3:33 AM) [place] Absolute 0.82 10*3 [0.30-1.00 10*3] (03/30/15 3:33 AM) Eos Absolute 0.22 10*3 [0.00-0.50 10*3] (03/30/15 3:33 AM) Baso Absolute 0.03 10*3 [0.00-0.20 10*3] (03/30/15 3:33 AM) Chemistry Most recent to 1 oldest [Reference Range]: Sodium Lvl [136-144 137 mEq/L mEq/L] (03/30/15 3:33 AM) Potassium Lvl 3.5 mEq/L [3.6-5.1 mEq/L] *LOW* (03/30/15 3:33 AM) Chloride [99-109 105 mEq/L mEq/L] (03/30/15 3:33 AM) CO2 [22-32 mEq/L] 24 mEq/L (03/30/15 3:33 AM) AGAP [3-20] 8 (03/30/15 3:33 AM) BUN [4-20 mg/dL] 11 mg/dL (03/30/15 3:33 AM) Glucose Lvl [70-100 114 mg/dL mg/dL] *HI* (03/30/15 3:33 AM) Creatinine Lvl 1.05 mg/dL [0.64-1.27 mg/dL] (03/30/15 3:33 AM) eGFR [>60] >60 1 (03/30/15 3:33 AM) Calcium Lvl 9.1 mg/dL [8.6-10.0 mg/dL] (03/30/15 3:33 AM) Albumin Lvl [3.5-4.8 4.4 gm/dL gm/dL] (03/30/15 3:33 AM) Total Protein 7.7 gm/dL [6.1-7.9 gm/dL] (03/30/15 3:33 AM) Globulin [1.9-4.3 3.3 gm/dL gm/dL] (03/30/15 3:33 AM) ALT [17-63 U/L] 39 U/L (03/30/15 3:33 AM) AST [15-41 U/L] 31 U/L (03/30/15 3:33 AM) Alk Phos [26-104 100 U/L U/L] (03/30/15 3:33 AM) Bili Total [0.2-1.2 0.5 mg/dL 2 mg/dL] (03/30/15 3:33 AM) Lipase Lvl [8-48 43 U/L U/L] (03/30/15 3:33 AM) 1Result Comment: Multiply eGFR results by 1.21 for race. 2Result Comment: Naproxen, specifically the metabolite O-desmethylnaproxen, may cause spurious elevation in Total Bilirubin levels. Urinalysis Most recent to 1 oldest [Reference Range]: UA Color Yellow (03/30/15 4:33 AM) UA Appear Clear (03/30/15 4:33 AM) UA pH [5.0-8.0] 5.0 (03/30/15 4:33 AM) UA Leuk Est Negative [Negative] (03/30/15 4:33 AM) UA Nitrite Negative [Negative] (03/30/15 4:33 AM) UA Protein Negative [Negative] (03/30/15 4:33 AM) UA Glucose Negative [Negative] (03/30/15 4:33 AM) UA Ketones Negative [Negative] (03/30/15 4:33 AM) UA Urobilinogen Negative [<1.0] (03/30/15 4:33 AM) UA Bili [Negative] Negative (03/30/15 4:33 AM) UA Blood [Negative] Pos 1+ *ABN* (03/30/15 4:33 AM) UA Spec Grav 1.008 [1.003-1.030] (03/30/15 4:33 AM) Type Clean Catch (03/30/15 4:33 AM) UA WBC [0-4] 0-2 (03/30/15 4:33 AM) UA RBC [0-2] 2-5 (03/30/15 4:33 AM) UA Bacteria Rare (03/30/15 4:33 AM) Immunizations No data available for this section Procedures Procedure Date Related Diagnosis Body Site Perc. Nephrostolithotomy L1 2013 Cystoscopy2 09/08/08 Appendectomy Knee joint operation Nephroscopic extraction of ureteric calculus without disintegration 1Perc. Nephrostolithotomy L/Tube/Stent Placed 2012. Left Staghorn Stone 2012. 2Cystoscopy; Lt Uretorscopy; Lithotripsy- 456260. Lt Ureteral Calculus 2008. Social History Social History Type Response Smoking Status Current every day smoker; Type: Cigarettes; Tobacco use per day: Pack Assessment and Plan No data available for this section
--- OUTSIDE RECORDS SUMMARY | 2018-11-07 06:57 | XMS REPORT | Referral Summary ---
Author Author [facility] Organization [facility] Address Unknown Phone Unavailable Care Team Providers Care E Business Consultant Name Role Phone Kenneth Cuevas PCP Encounter [facility] Date(s): 07/14/17 - 07/14/17 [facility] [address] [place] [address] [phone] Discharge Diagnosis: Ureterolithiasis Discharge Disposition: 70-Other Healthcare Facility Attending Physician: Suzie Spencer MD Admitting Physician: Suzie Spencer MD Vital Signs Most recent to 1 oldest [Reference Range]: Temperature Oral 37.1 degC [35.8-37.3 degC] (07/14/17 9:45 AM) Peripheral Pulse 80 bpm Rate [60-100 bpm] (07/14/17 12:00 PM) Respiratory Rate 16 br/min [14-20 br/min] (07/14/17 9:45 AM) Blood Pressure 126/82 mmHg [90-140/60-90 mmHg] (07/14/17 12:00 PM) SpO2 99 % (07/14/17 9:45 AM) Problem List Condition Effective Dates Status Health Status Informant Acid Active patient reflux(Confirmed) HTN Active patient (hypertension)(Confi rmed) Kidney Active patient stones(Confirmed) Tobacco Active patient user(Confirmed) Lt Ureteral 2009 Active Calculus(Confirmed)1 1Cystoscopy; Lt Ureteroscopy; Lithotrippsy- 938280. Allergies, Adverse Reactions, Alerts Substance Reaction Severity Status meperidine Eczema (rash) Active penicillin Adverse Reaction Active Lortab 2.5/500 N/V Mild Active Medications Flomax 0.4 mg oral capsule [...] Staghorn Stone 2012. 2Cystoscopy; Lt Uretorscopy; Lithotripsy- 715064. Lt Ureteral Calculus 2008. Social History Social History Type Response Smoking Status Current every day smoker entered on: 07/15/16 Assessment and Plan No data available for this section
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
--- OUTSIDE RECORDS SUMMARY | 2018-11-07 06:58 | XMS REPORT | Continuity of Care Document ---
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 injection (specify substance or drug); subcutaneous or intramuscular 04/28/201615044 Office or other outpatient visit for the evaluation and management of an established patient, which requires at least 2 of these 3 corbett components: An expanded problem focused history; An expanded prob 04/28/2016 64764 Office or other outpatient visit for the evaluation and management of an established patient, which TIFFANIE DONOHUE MD 05/12/201620045 Office or other outpatient visit for the evaluation and management of an established patient, which requires at least 2 of these 3 corbett components: An expanded problem focused history; An expanded prob 07/15/2016 08664 Office or other outpatient visit for the evaluation and management of an established patient, which requires at least 2 of these 3 corbett components: An expanded problem focused history; An expanded prob 08/25/2016 50929 Radiologic examination; forearm, 2 views 10/04/2016 76653 Office or other outpatient visit for the evaluation and management of an established patient, which requires at least 2 of these 3 corbett components: An expanded problem focused history; An expanded prob 10/04/2016 53477 Computed tomography, abdomen and pelvis; [place] 2016 [address]5844 Urinalysis, by dip stick or tablet reagent for bilirubin, glucose, hemoglobin, ketones, leukocytes, nitrite , pH, protein, specific gravity, urobilinogen, any number of these constituents ; automated, w 10/24/2016 58052 Therapeutic, prophylactic, or diagnostic injection (specify substance or drug); subcutaneous or intramuscular 10/24/2016 81725 Office or other outpatient visit for the evaluation and management of an established patient, which requires at least 2 of these 3 corbett components: A detailed history; A detailed examination; Medical d 10/24/2016 76738 URINALYSIS, BY DIP STICK OR TABLET REAGENT FOR BILIRUBIN, GLUCOSE,HEMOGLOBIN, KETONES, LEUKOCYTES, SRI SOLORZANO MD 01/29/2017 93307 OFFICE OR OTHER OUTPATIENT VISIT FOR THE EVALUATION AND MANAGEMENT OF ANESTABLISHED PATIENT, WHICH SRI ACLL MD 01/29/2017 78311 LITHOTRIPSY, EXTRACORPOREAL SHOCK WAVE SRI CLAYTON MD 01/30/2017 29526 URINALYSIS, BY DIP STICK OR TABLET REAGENT FOR BILIRUBIN, GLUCOSE,HEMOGLOBIN, KETONES, LEUKOCYTES, SRI SOLORZANO MD 02/20/2017 72752 OFFICE OR OTHER OUTPATIENT VISIT FOR THE EVALUATION AND MANAGEMENT OF ANESTABLISHED PATIENT, WHICH SRI CALL MD 02/20/2017 75122 LITHOTRIPSY, EXTRACORPOREAL SHOCK WAVE SRI CLAYTNO MD 03/04/2017 13291 Culture, presumptive, pathogenic organisms, screening only;. 2016 73378 Infectious agent antigen detection by immunoassay with direct optical observation; Streptococcus, group A.. 03/24/2017 55710 Office or other outpatient visit for the evaluation and management of an established patient, which requires at least 2 of these 3 corbett components: An expanded problem focused history; An expanded prob 03/24/2017 35386 EYE EXAM T TREATMENT 03/30/2017 74646 REFRACTION 03/30/2017 05004 Contact Lens Fittting 03/30/2017 V2521 Cntct lens hydrophilic toric 03/30/2017 75784 Blood Draw TIFFANIE DONOHUE MD 05/05/2017 25571 General health panel This panel must include the following: Comprehensive metabolic panel (21238) Bl TIFFANIE DONOHUE MD 05/05/2017 16176 Lipid panel This panel must include the following: Cholesterol, serum, total (50970) Lipoprotein, TIFFANIE Mathew MD 05/05/2017 55434 Hemoglobin; glycosylated ( A1C) TIFFANIE DONOHUE MD 05/05/2017 55853 Prostate specific antigen ( PSA); total TIFFANIE DONOHUE MD 05/05/2017 92055 Thyroid stimulating hormone (TSH) TIFFANIE DONOHUE MD 05/05/2017 11260 Office or other outpatient visit for the evaluation and management of an established patient, which TIFFANIE DONOHUE MD 05/05/2017 92658 Blood Draw TIFFANIE DONOHUE MD 07/02/2017 93166 General health panel This panel must include the following: Comprehensive metabolic panel (85342) Bl TIFFANIE DONOHUE MD 07/13/2017 66735 Lipid panel This panel must include the following: Cholesterol, serum, total (35600) Lipoproteinbang MD, JOHN J 07/13/2017 50957 Hemoglobin; glycosylated ( A1C) TIFFANIE DONOHUE MD 07/13/2017 09895 Prostate specific antigen ( PSA); total TIFFANIE DONOHUE MD 07/13/2017 13865 Thyroid stimulating hormone (TSH) TIFFANIE DONOHUE MD 07/13/2017 59576 Office or other outpatient visit for the evaluation and management of an established patient, which TIFFANIE DONOHUE MD 07/13/2017 05595 CALCULUS; INFRARED SPECTROSCOPY THOMAS SAUER 09/15/2017 52373 URINALYSIS, BY DIP STICK OR TABLET REAGENT FOR BILIRUBIN, GLUCOSE,HEMOGLOBIN, KETONES, LEUKOCYTES, N THOMAS SAUER 11/20/2017 03389 OFFICE OR OTHER OUTPATIENT VISIT FOR THE EVALUATION AND MANAGEMENT OF ANESTABLISHED PATIENT, WHICH THOMAS QUEEN 11/20/2017 52214 CYSTOURETHROSCOPY, WITH URETEROSCOPY AND/OR PYELOSCOPY;WITH LITHOTRIPSY INCLUDING INSERTION OF INDWE THOMAS SAUER 11/24/2017 48114 UROGRAPHY, RETROGRADE, WITH OR WITHOUT KUB THOMAS SAUER 11/24/2017 49628 OFFICE OR OTHER OUTPATIENT VISIT FOR THE EVALUATION AND MANAGEMENT OF ANESTABLISHED PATIENT, WHICH GIA NAQVI 11/27/2017 97742 OFFICE OR OTHER OUTPATIENT VISIT FOR THE EVALUATION AND MANAGEMENT OF ANESTABLISHED PATIENT, WHICH GIA NAQVI 12/08/2017 64502 URINALYSIS, BY DIP STICK OR TABLET REAGENT FOR BILIRUBIN, GLUCOSE,HEMOGLOBIN, KETONES, LEUKOCYTES, N THOMAS SAUER 12/15/2017 03504 OFFICE OR OTHER OUTPATIENT VISIT FOR THE EVALUATION AND MANAGEMENT OF ANESTABLISHED PATIENT, WHICH R THOMAS SAUER 12/15/2017 89972 CYSTOURETHROSCOPY, WITH URETEROSCOPY AND/OR PYELOSCOPY;WITH LITHOTRIPSY INCLUDING INSERTION OF INDWE THOMAS SAUER 01/14/2018 98394 UROGRAPHY, RETROGRADE, WITH OR WITHOUT KUB THOMAS SAUER 01/14/2018 65719 EYE EXAM T TREATMENT 03/22/2018 28844 REFRACTION 03/22/2018 56592 Contact Lens Fittting 03/22/2018 V0040 Protection Plan Level 3 03/22/2018 V2020 Vision svcs frames purchases 03/22/2018 V2103 Spherocylindr 4.00d/12- 2.00d 03/22/2018 V2744 Tint photochromatic lens/es 03/22/2018 V2750 Anti-reflective coating 03/22/2018 V2755 UV lens/es 03/22/2018 V2782 Lens, 1.54-1.65 p/1.60- 1.79g 03/22/2018 V2799 Miscellaneous vision service 03/22/2018 V2521 Cntct lens hydrophilic toric 03/22/2018 86170 Blood Draw RJ ROMERO MD 07/20/2018 53850 General health panel This panel must include the following: Comprehensive metabolic panel (31897) Bl RJ ROMERO MD 07/20/2018 75993 Lipid panel This panel must include the following: Cholesterol, serum, total (83872) Lipoprotein, di RJ ROMERO MD 07/20/2018 55017 Glutamyltransferase, gamma ( GGT) RJ ROMERO MD 07/20/2018 55242 Hemoglobin; glycosylated ( A1C) RJ ROMERO MD 07/20/2018 34704 Phosphorus inorganic ( phosphate); RJ ROMERO MD 07/20/2018 85078 Testosterone; free RJ ROMERO MD 07/20/2018 32002 Testosterone; total RJ ROMERO MD 07/20/2018 34676 Uric acid; blood RJ ROMERO MD 07/20/2018 36667 Office or other outpatient visit for the evaluation and management of an established patient, which RJ ROMERO MD 07/20/2018 75333 Blood Draw RJ ROMERO MD 08/12/2018 87832 General health panel This panel must include the following: Comprehensive metabolic panel (21997) Bl RJ ROMERO MD 08/12/2018 51567 Lipid panel This panel must include the following: Cholesterol, serum, total (62685) Lipoprotein, di RJ ROMERO MD 08/12/2018 21736 Glutamyltransferase, gamma ( GGT) RJ ROMERO MD 08/12/2018 04631 Hemoglobin; glycosylated ( A1C) RJ ROMERO MD 08/12/2018 12382 Phosphorus inorganic ( phosphate); RJ ROMERO MD 08/12/2018 20330 Testosterone; free RJ ROMERO MD 08/12/2018 10058 Testosterone; total RJ ROMERO MD 08/12/2018 03579 Uric acid; blood RJ ROMERO MD 08/12/2018 77599 Office or other outpatient visit for the evaluation and management of an established patient, which RJ ROMERO MD 08/12/2018 Results Test Result Range CBC - 06/29/13 10:15 MEAN CELL HGB 29.7 pg 27.0-33.0 MEAN CELL HGB CONCENTRATION 33.7 g/dL 32.0-37.0 MEAN CELL VOLUME 87.9 fl 80.0-100.0 RED BLOOD CELL 5.53 m/cumm 4.00-6.00 RED CELL DISTRIBUTION WIDTH 13.1 % 11.0-15.6 WHITE BLOOD CELL 9.6 k/cumm 5.0-10.0 HEMOGLOBIN 16.4 gm/dL 14.0-18.0 HEMATOCRIT 48.6 % 40.0-54.0 PLATELET COUNT 313 k/cumm 150-400 METABOLIC PANEL, BASIC - 06/29/13 10:15 POTASSIUM 3.4 mmol/L 3.5-5.3 EST GFR (MDRD) > 60 mL/min > 59 ANION GAP 8 mmol/L 5-15 EST CrCl (CG) > 60 mL/min > 59 GLUCOSE 92 mg/dL 70-99 CALCIUM 9.2 mg/dL 8.5-10.1 BLOOD UREA NITROGEN 11 mg/dL 7-20 CREATININE 0.9 mg/dL 0.8-1.3 SODIUM 137 mmol/L 135-148 CHLORIDE 100 mmol/L 98-110 CARBON DIOXIDE 29 mmol/L 21-32 CALCULI, ANALYSIS - 06/29/13 14:35 CA HYDROGEN PHOSPHATE 65 % () CA OXALATE MONOHYDRATE 25 % () CALCIUM PHOSPHATE 10 % () COLOR Brown () COMMENT 2 Note: () COMPOSITION Note () PLEASE NOTE Note () NIDUS No Nidus visualized () SIZE Note mm () WEIGHT 923.0 mg () COMMENT Note () CBC - 06/30/13 05:06 MEAN CELL HGB 30.0 pg 27.0-33.0 MEAN CELL HGB CONCENTRATION 33.7 g/dL 32.0-37.0 MEAN CELL VOLUME 89.1 fl 80.0-100.0 RED BLOOD CELL 4.33 m/cumm 4.00-6.00 RED CELL DISTRIBUTION WIDTH 12.8 % 11.0-15.6 WHITE BLOOD CELL 11.5 k/cumm 5.0-10.0 HEMOGLOBIN 13.0 gm/dL 14.0-18.0 HEMATOCRIT 38.6 % 40.0-54.0 PLATELET COUNT 258 k/cumm 150-400 METABOLIC PANEL, BASIC - 06/30/13 05:06 POTASSIUM 3.3 mmol/L 3.5-5.3 EST GFR (MDRD) > 60 mL/min > 59 ANION GAP 10 mmol/L 5-15 EST CrCl (CG) > 60 mL/min > 59 GLUCOSE 99 mg/dL 70-99 CALCIUM 8.4 mg/dL 8.5-10.1 BLOOD UREA NITROGEN 8 mg/dL 7-20 CREATININE 0.9 mg/dL 0.8-1.3 SODIUM 140 mmol/L 135-148 CHLORIDE 104 mmol/L 98-110 CARBON DIOXIDE 26 mmol/L 21-32 CBC - 07/14/14 10:31 MEAN CELL HGB 30.4 pg 27.0-33.0 MEAN CELL HGB CONCENTRATION 34.5 g/dL 32.0-37.0 MEAN CELL VOLUME 87.9 fl 80.0-100.0 RED BLOOD CELL 5.30 m/cumm 4.00-6.00 RED CELL DISTRIBUTION WIDTH 13.4 % 11.0-15.6 WHITE BLOOD CELL 7.7 k/cumm 5.0-10.0 HEMOGLOBIN 16.1 gm/dL 14.0-18.0 HEMATOCRIT 46.6 % 40.0-54.0 PLATELET COUNT 319 k/cumm 150-400 METABOLIC PANEL, BASIC - 07/14/14 10:31 POTASSIUM 4.7 mmol/L 3.5-5.3 EST GFR (MDRD) > 60 mL/min > 59 ANION GAP 6 mmol/L 5-15 EST CrCl (CG) > 60 mL/min > 59 GLUCOSE 99 mg/dL 70-99 CALCIUM 9.3 mg/dL 8.5-10.1 BLOOD UREA NITROGEN 11 mg/dL 7-20 CREATININE 0.8 mg/dL 0.8-1.3 SODIUM 139 mmol/L 135-148 CHLORIDE 107 mmol/L 98-110 CARBON DIOXIDE 26 mmol/L 21-32 MRSA SURVEILLANCE SCREEN - 07/14/14 10:31 Microbiology CALCULI, ANALYSIS - 07/19/14 16:52 CA HYDROGEN PHOSPHATE 85 % () CA OXALATE MONOHYDRATE 10 % () CALCIUM PHOSPHATE 05 % () COLOR Metcalf () COMPOSITION Note () PLEASE NOTE Note () NIDUS No Nidus visualized () SIZE Note mm () WEIGHT 22.0 mg () COMMENT Note () HGB HCT - 07/19/14 17:04 MEAN CELL VOLUME 92.3 fl 80.0-100.0 HEMOGLOBIN 13.1 gm/dL 14.0-18.0 HEMATOCRIT 40.8 % 40.0-54.0 HGB HCT - 07/19/14 21:01 MEAN CELL VOLUME 90.4 fl 80.0-100.0 HEMOGLOBIN 13.1 gm/dL 14.0-18.0 HEMATOCRIT 40.4 % 40.0-54.0 HEMOGLOBIN - 07/20/14 04:29 MEAN CELL VOLUME 89.2 fl 80.0-100.0 HEMOGLOBIN 12.0 gm/dL 14.0-18.0 CBC - 08/04/14 07:03 MEAN CELL HGB 29.1 pg 27.0-33.0 MEAN CELL HGB CONCENTRATION 32.1 g/dL 32.0-37.0 MEAN CELL VOLUME 90.5 fl 80.0-100.0 RED BLOOD CELL 4.23 m/cumm 4.00-6.00 RED CELL DISTRIBUTION WIDTH 14.0 % 11.0-15.6 WHITE BLOOD CELL 10.2 k/cumm 5.0-10.0 HEMOGLOBIN 12.3 gm/dL 14.0-18.0 HEMATOCRIT 38.3 % 40.0-54.0 PLATELET COUNT 413 k/cumm 150-400 METABOLIC PANEL, BASIC - 08/04/14 07:03 POTASSIUM 3.4 mmol/L 3.5-5.3 EST GFR (MDRD) > 60 mL/min > 59 ANION GAP 10 mmol/L 5-15 EST CrCl (CG) > 60 mL/min > 59 GLUCOSE 120 mg/dL 70-99 CALCIUM 9.2 mg/dL 8.5-10.1 BLOOD UREA NITROGEN 14 mg/dL 7-20 CREATININE 1.1 mg/dL 0.8-1.3 SODIUM 139 mmol/L 135-148 CHLORIDE 103 mmol/L 98-110 CARBON DIOXIDE 26 mmol/L 21-32 Chem 8 NPT - 02/03/16 12:30 Anion Gap 15 NA 3-20 BUN Venous 12 mg/dl 4-20 Calcium Ionized Venous 1.26 mmol/L 1.19-1.41 Creatinine Venous 0.7 mg/dL 0.7-1.2 Glucose Venous 171 mg/dL 70-100 Potassium, WB 3.5 mEq/L 3.6-5.1 Sodium Venous 140 mEq/L 136-144 Total CO2 Venous 22 mEq/L 25-29 Venous CL 103 mEq/L 99-109 HCT Venous 49.0 % 42.0-52.0 HGB Venous NPT 16.7 g/dL 14.0-18.0 Urinalysis with reflex microscopic - 02/03/16 13:05 Appearance Clear NA Bilirubin Negative NA Negative Blood Negative NA Negative Color Yellow NA Glucose, Urine Pos 1+ Negative Ketones Negative Negative Leukocyte Esterase Negative NA Negative Nitrites Negative NA Negative pH 7.0 NA 5.0-8.0 Protein Negative Negative Specific [place] 1.021 NA 1.003-1.030 UA Collection type Clean Catch NA Urobilinogen 1.0 mg/dL <1.0 URINALYSIS - 02/07/16 14:47 COLOR STRAW NRG RBC NEGATIVE NEGATIVE NITRITES NEGATIVE NEGATIVE LEUKOCYTE ESTERASE * TRACE NEGATIVE GLUCOSE NEGATIVE NEGATIVE BILIRUBIN NEGATIVE NEGATIVE KETONES NEGATIVE mg/dL NEGATIVE SPECIFIC GRAVITY 1.025 1.010 - 1.030 pH 6.0 5.0 - 8.0 PROTEIN * TRACE mg/dL NEGATIVE UROBILINOGEN 0.2 E.U./dL E.U./dL 0.2 E.U./dL URINE MICRO - 02/07/16 14:48 WBC 3-7 0-8/HPF NRG BACTERIA TRACE 0 - TRACE NRG CT STONE PROTOCOL - 03/18/16 03:30 CT STONE PROTOCOL See Attached Document NRG CBC With Platelet and Differential - 01/26/17 17:54 Absolute Basophils 0.02 10*3/uL 0.00-0.20 Absolute Eosinophils 0.09 10*3/uL 0.00-0.50 Absolute Lymphocytes 3.20 10*3/uL 0.80-3.30 Absolute Monocytes 1.09 10*3/uL 0.30-1.00 Absolute Neutrophils 9.96 10*3/uL 1.90-7.00 Basophils 0 % 0-2 Eosinophils 1 % 0-4 HCT 49.5 % 42.0-52.0 HGB 17.1 g/dL 14.0-18.0 Immature Granulocytes 0.3 % 0.0-1.0 Lymphocytes 22 % 20-46 MCH 29.8 pg 27.0-32.0 MCHC 34.5 g/dL 32.0-36.0 MCV 86.4 fL 82.0-99.0 Monocytes 8 % 4-11 MPV 9.4 fL 9.4-12.3 Neutrophils 69 % 51-75 Platelet Count 392 K/uL 150-400 RBC 5.73 10*6/uL 4.60-6.20 RDW 13.9 % 11.5-14.5 WBC 14.4 K/uL 4.8-10.8 Urinalysis with reflex microscopic - 01/26/17 17:54 Appearance Clear NA Bilirubin Negative NA Negative Blood Pos 3+ NA Negative Color Dk Yellow NA Glucose, Urine TRACE Negative Ketones Negative Negative Leukocyte Esterase Trace NA Negative Nitrites Negative NA Negative pH 6.5 NA 5.0-8.0 Protein Pos 1+ Negative Specific [place] 1.018 NA 1.003-1.030 UA Collection type Clean Catch NA Urobilinogen Negative mg/dL <1.0 Urine Microscopic - 01/26/17 17:54 Crystals Amorphous NA Epithelial Cells 0 /HPF RBC, Urine >50 /HPF 0-2 Urine Mucus Present NA WBC, Urine 0 /HPF 0-4 Comprehensive Metabolic Panel (CMP) - 01/26/17 17:54 Albumin 4.5 g/dL 3.5-4.8 Alkaline Phosphatase 116 U/L 26-104 ALT (SGPT) 62 U/L 17-63 Anion Gap 12 mEq/L 3-20 AST (SGOT) 49 U/L 15-41 Bilirubin Total 1.0 mg/dL 0.2-1.2 BUN 9 mg/dL 4-20 Calcium 10.8 mg/dL 8.6-10.0 Chloride 100 mEq/L 99-109 CO2 26 mEq/L 22-32 Creatinine 0.86 mg/dL 0.64-1.27 Globulin 3.6 g/dL 1.9-4.3 Glucose 101 mg/dL 70-100 Potassium 3.7 mEq/L 3.6-5.1 Protein 8.1 g/dL 6.1-7.9 Sodium 138 mEq/L 136-144 Lipase - 01/26/17 17:54 Lipase 27 U/L 8-48 eGFR - 01/26/17 17:54 eGFR >60 mL/min >60 URINALYSIS - 01/27/17 12:52 COLOR DK YELLOW NRG RBC * LARGE NEGATIVE NITRITES NEGATIVE NEGATIVE LEUKOCYTE ESTERASE * SMALL NEGATIVE GLUCOSE NEGATIVE NEGATIVE BILIRUBIN * MODERATE NEGATIVE KETONES * TRACE mg/dL NEGATIVE SPECIFIC GRAVITY 1.025 1.010 - 1.030 pH 6.0 5.0 - 8.0 PROTEIN * 100 mg/dL mg/dL NEGATIVE UROBILINOGEN 0.2 E.U./dL E.U./dL 0.2 E.U./dL URINE MICRO - 01/27/17 12:55 RBC PACKED 0-3/HPF NRG WBC 8-12 0-8/HPF NRG MUCUS MODERATE NRG CBC - 05/04/17 12:25 WBC 7.4 K/uL 4.0-10.5 RBC 5.15 M/uL 4.40-5.78 Hemoglobin 16.3 g/dL 13.0-17.2 Hematocrit 47.9 % 38.9-51.9 MCV 93 fL 78-100 MCH 32 pg 26-31 MCHC 34.0 g/dL 32.0-36.0 RDW 14.3 % 11.6-14.8 Platelets 253 K/uL 142-424 Lymphs 34.0 % 10.0-50.0 Mid% 8.5 % 0.0-12.0 Granulocyte% 57.5 % 37.0-80.0 Lymphs (Absolute) 2.5 K/uL 0.6-3.4 Mid# 0.6 K/uL 0.0-0.9 Granulocyte# 4.3 K/uL 2.0-6.9 CMP+Lipids - 05/04/17 12:25 TSH - 05/04/17 12:25 PSA - 05/04/17 12:25 HbA1C - 05/04/17 12:36 Hemoglobin A1c 5.9 % 4.5-5.9 CMP/Lipids+DBili+LDH - 05/04/17 15:12 Glucose 97 mg/dL 70-100 BUN 12 mg/dL 7-18 Creatinine 0.7 mg/dL 0.7-1.2 B/C Ratio 17.1 Ratio 7.0-20.0 eGFR, Calculated 132.1 mL/min/1.73m2 >60.0 Sodium 142 mEq/L 136-145 Potassium 4.0 mEq/L 3.5-5.5 Chloride 107 mEq/L 98-107 CO2 26.0 mEq/L 21.0-33.0 Calcium 9.4 mg/dL 8.5-10.5 Phosphorus 2.4 mg/dL 2.0-4.5 Total Protein 6.9 g/dL 6.4-8.3 Albumin 4.4 g/mL 3.5-5.0 Fructosamine 4.8 mg/dL 2.6-7.2 AST/SGOT 40 IU/L 7-40 ALT/SGPT 52 U/L 10-40 Alk Phos 127 U/L 40-150 LDH 214 U/L 80-285 Total Bilirubin 0.7 mg/dL 0.1-1.0 Dir Bilirubin 0.2 mg/dL 0.1-0.4 GGT 102 IU/L 0-65 Cholesterol 167 mg/dL 80-200 Triglycerides 179 mg/dL 40-160 HDL 38 mg/dL 40-65 cLDL 93 mg/dL 0-100 TSH - 05/04/17 14:11 TSH 0.41 uIU/mL 0.35-5.50 PSA - 05/04/17 14:11 Prostate Specific Ag, Serum 0.30 ng/mL 0.00-4.00 BMP - 07/14/17 15:20 GFR >60 >=60 GFR NonAfrican Singaporean >60 >=60 SODIUM:SCNC:PT:SER/PLAS:QN: 139 mmol/L 136-145 POTASSIUM:SCNC:PT:SER/PLAS:QN: 3.4 mmol/L 3.5-5.1 CHLORIDE:SCNC:PT:SER/PLAS:QN: 104 mmol/L 98-107 CARBON DIOXIDE:SCNC:PT:SER/PLAS:QN: 24 mmol/L 21-32 ANION GAP 3:SCNC:PT:SER/PLAS:QN: 11 7-16 UREA NITROGEN:MCNC:PT:SER/PLAS:QN: 16 mg/dL 6-20 CREATININE:MCNC:PT:SER/PLAS:QN: 1.2 mg/dL 0.8-1.3 GLUCOSE:MCNC:PT:SER/PLAS:QN: 131 mg/dL 70-110 CALCIUM:MCNC:PT:SER/PLAS:QN: 9.3 mg/dL 8.6-10.2 UREA NITROGEN/CREATININE:MRTO:PT:SER/PLAS:QN: 13.9 10.0- 20.1 CBC With Platelet and Differential - 11/15/17 20:36 Absolute Basophils 0.05 10*3/uL 0.00-0.20 Absolute Eosinophils 0.37 10*3/uL 0.00-0.50 Absolute Lymphocytes 3.93 10*3/uL 0.80-3.30 Absolute Monocytes 1.09 10*3/uL 0.30-1.00 Absolute Neutrophils 5.65 10*3/uL 1.90-7.00 Basophils 0 % 0-2 Eosinophils 3 % 0-4 HCT 49.4 % 42.0-52.0 HGB 16.7 g/dL 14.0-18.0 Immature Granulocytes 0.4 % 0.0-1.0 Lymphocytes 35 % 20-46 MCH 29.9 pg 27.0-32.0 MCHC 33.8 g/dL 32.0-36.0 MCV 88.4 fL 82.0-99.0 Monocytes 10 % 4-11 MPV 9.6 fL 9.4-12.3 Neutrophils 51 % 51-75 Platelet Count 330 K/uL 150-400 RBC 5.59 10*6/uL 4.60-6.20 RDW 13.4 % 11.5-14.5 WBC 11.1 K/uL 4.8-10.8 Lipase - 11/15/17 20:36 Lipase 44 U/L 8-48 eGFR - 11/15/17 20:36 eGFR >60 mL/min >60 Urinalysis with reflex microscopic - 11/15/17 21:04 Appearance Clear NA Bilirubin Negative NA Negative Blood Pos 3+ NA Negative Color Dk Yellow NA Glucose, Urine Negative Negative Ketones Negative Negative Leukocyte Esterase Trace NA Negative Nitrites Negative NA Negative pH 6.5 NA 5.0-8.0 Protein Pos 1+ Negative Specific [place] 1.021 NA 1.003-1.030 UA Collection type Clean Catch NA Urobilinogen Negative mg/dL <1.0 Urine Microscopic - 11/15/17 21:04 Bacteria Rare NA Epithelial Cells 0 /HPF RBC, Urine 20 /HPF 0-2 Urine Mucus Present NA WBC, Urine 10 /HPF 0-4 URINALYSIS - 11/16/17 14:01 COLOR STRAW NRG RBC * MODERATE NEGATIVE NITRITES NEGATIVE NEGATIVE LEUKOCYTE ESTERASE * SMALL NEGATIVE GLUCOSE NEGATIVE NEGATIVE BILIRUBIN NEGATIVE NEGATIVE KETONES NEGATIVE mg/dL NEGATIVE SPECIFIC GRAVITY 1.020 1.010 - 1.030 pH 5.5 5.0 - 8.0 PROTEIN * TRACE mg/dL NEGATIVE UROBILINOGEN 0.2 E.U./dL E.U./dL 0.2 E.U./dL URINE MICRO - 11/16/17 14:16 RBC 20-25 0-3/HPF NRG WBC 15-20 0-8/HPF NRG BACTERIA TRACE 0 - TRACE NRG Basic Metabolic Panel - 11/18/17 14:35 Glucose [Mass/volume] in Serum or Plasma 87 mg/dL 74 - 106 Urea nitrogen [Mass/volume] in Serum or Plasma 8.9 mg/dL 8.4 - 25.8 Creatinine [Mass/volume] in Serum or Plasma 0.7 mg/dL 0.7 - 1.2 Calcium [Mass/volume] in Serum or Plasma 9.68 mg/dL 8.30 - 10.60 Sodium 136 mmol/L 135 - 151 Potassium 3.7 mmol/L 3.7 - 5.2 Chloride [Moles/volume] in Serum or Plasma 101 mmol/L 98 - 113 TCo2 23 mmol/L 23 - 34 Age at Specimen Collection 42 a CMP+Lipids - 07/19/18 10:19 Glucose 200 mg/dL 70-100 BUN 15 mg/dL 7-18 Creatinine 0.9 mg/dL 0.7-1.2 B/C Ratio 16.7 Ratio 7.0-20.0 eGFR, Calculated 98.4 mL/min/1.73m2 >60.0 Sodium 140 mEq/L 136-145 Potassium 4.3 mEq/L 3.5-5.5 Chloride 105 mEq/L 98-107 CO2 24.0 mEq/L 21.0-33.0 Calcium 9.8 mg/dL 8.5-10.5 Phosphorus 2.3 mg/dL 2.0-4.5 Total Protein 7.1 g/dL 6.4-8.3 Albumin 4.4 g/mL 3.5-5.0 Fructosamine 5.1 mg/dL 2.6-7.2 AST/SGOT 54 IU/L 7-40 ALT/SGPT 56 U/L 10-40 Alk Phos 147 U/L 40-150 Total Bilirubin 0.4 mg/dL 0.1-1.0 GGT 113 IU/L 0-65 Cholesterol 180 mg/dL 80-200 Triglycerides 486 mg/dL 40-160 HDL 33 mg/dL 40-65 cLDL 50 mg/dL 0-100 CBC - 07/19/18 09:20 WBC 7.6 K/uL 4.0-10.5 RBC 4.98 M/uL 4.40-5.78 Hemoglobin 15.2 g/dL 13.0-17.2 Hematocrit 46.2 % 38.9-51.9 MCV 93 fL 78-100 MCH 31 pg 26-31 MCHC 32.9 g/dL 32.0-36.0 RDW 15.1 % 11.6-14.8 Platelets 283 K/uL 142-424 Lymphs 28.7 % 10.0-50.0 Mid% 8.0 % 0.0-12.0 Granulocyte% 63.3 % 37.0-80.0 Lymphs (Absolute) 2.1 K/uL 0.6-3.4 Mid# 0.6 K/uL 0.0-0.9 Granulocyte# 4.9 K/uL 2.0-6.9 HbA1C - 07/19/18 09:25 Hemoglobin A1c 6.5 % 4.5-5.9 Testost Free/Total - 07/21/18 12:12 Testosterone, Serum 265 ng/dL 264-916 Free Testosterone(Direct) 10.0 pg/mL 6.8-21.5 Radiology Report from DANYELLE on 06/23/2013 21:43:00 DIAGNOSTIC IMAGING REPORT [facility] - [address] [place] [address] PHONE #: [phone] FAX #: [phone] ------- Name: BREANNAYESYSHAMIKA CHARLES Loc: ClaudioJUDSON Radiology No: : 1974 Age: 38 Sex: M Status: REG [facility] Unit No: [id number] Phys: Alexey Caal MD Acct: [id number] Reason For Exam: POSS STONE Exam Date: 06/23/2013 EXAMS: CPT CODE: [id number] CT ABD/PELVIS W/O CONTRAST 34551 DATE: 06/23/2013 5:46 PM REASON FOR EXAM: POSS RENAL STONE. COMPARISON: None. TECHNIQUE: Helical noncontrast images were obtained through the abdomen and pelvis. Sagittal and coronal reformatted images were also reviewed. FINDINGS: The heart is unremarkable. The included lung bases are clear. The liver, spleen, pancreas, and adrenal glands have a normal appearance. There is a very large calculus at the left ureteropelvic junction which measures 2.9 x 1.6 cm, with hydronephrosis and periureteral stranding. A second nonobstructing 9 mm stone is seen in the inferior left collecting system. A third 5 mm stone is present in the left collecting system as well. Multiple nonobstructing stones are noted in the right kidney. There is no pathologically enlarged mesenteric or retroperitoneal adenopathy. The bowel loops are nondilated. The appendix is not seen, surgical clip is noted near the cecum. There is no free fluid or free air. The osseous structures are age-appropriate. Ureters and bladder are grossly normal. There is no free air, loculated collection, or adenopathy in the pelvis. IMPRESSION: 1. Large obstructing calculus at the left ureteropelvic junction, measuring up to 2.9 cm, with left hydronephrosis and perirenal stranding. 2. Multiple other nonobstructing stones in the kidneys bilaterally. Exam discussed with Dr. Donohue on 06/23/2013 6:15 PM. I have personally reviewed these images and approved or corrected the resident physician's interpretation. PAGE 1 Signed Report (CONTINUED) DIAGNOSTIC IMAGING REPORT [facility] - [address] [place] [address] PHONE #: FAX #: [phone] Name: YESY CARLOS [facility] Radiology No: : 1975 Age : 38 Sex: M Status: REG [facility] Unit No: [id number] Phys: Alexey Caal MD Acct: [id number] Reason For Exam: POSS STONE Exam Date: 06/23/2013 EXAMS: CPT CODE: [id number] CT ABD/PELVIS W/O CONTRAST 96253 <Continued> at 5892 RESIDENT: LARISSA BANKS MD Reported and signed by: AVANI HERNANDEZ MD CC: Tiffanie Donohue MD; Alexey Wilkes MD Technologist: NEO MORALES; GABRIELA SOLIS Transcribed Date/Time: 06/23/2013 (2137)Gis Professor: SHANIKA Printed Date/Time: 06/23/2013 (2142) BATCH NO: N/A PAGE 2 Signed Report Radiology Report from FREDDIE on 06/29/2013 13:16:00 DIAGNOSTIC IMAGING REPORT [facility] - [address] [address] PHONE #: [phone] FAX #: [phone] ------- Name: YESY CARLOS Loc: W.1200 Q Radiology No: : 1974 Age: 38 Sex: M [place] [facility] [place] No: [id number] Phys: FREDDIE Jolie Thomas Sauer Barbara Acct: [id number] Reason For Exam: G AN ANTICOAGULANT DRUG? N Exam Date: 06/29/2013 EXAMS: CPT CODE: [id number] URETER CTH/STNT PL RAD G [address]226 [id number] UROGRAPHY ANTEGRADE 08443 DATE OF EXAM: 06/29/2013 REASON FOR EXAM: Left-sided staghorn calculus. COMPARISON: CT abdomen pelvis dated 2012. The procedure was performed by Dr. Nash. After obtaining informed consent the patient was placed prone on the examination table. A timeout was performed before the start of the procedure. The skin over the left flank was cleaned and prepped in sterile fashion. An appropriate area was marked on the skin using fluoroscopic guidance. Following this 1% lidocaine was used to obtain anesthesia. 20-gauge Chiba needle was inserted into the collecting system with fluoroscopic confirmation (contrast injection ). Following this a 0.018 inch extra stiff guidewire was placed through the needle. The needle was removed over the wire. Subsequently a 4.5 Solomon Islander sheath was placed wire and advanced into the renal pelvis. Berenstein catheter was introduced into the sheath. The thin wire was removed and a 0.038 inch guidewire was advanced through the sheath and catheter and into the proximal ureter. Following this the sheath and catheter were removed. Finally a 6 Solomon Islander ureteral sheath was advanced over the guidewire and into the distal ureter. The wire was then removed. The patient appeared to tolerate the procedure well without immediate complications. IMPRESSION: 1. Successful placement of a left-sided ureteral sheath as described above. Fluoro time: 8.8 minutes. I have personally reviewed these images and approved or corrected the resident physician's interpretation. at 1311 RESIDENT: MARIANA SELLERS MD Reported and signed by: THOMAS NASH MD PAGE 1 Signed Report (CONTINUED) DIAGNOSTIC IMAGING REPORT [facility] - [address] [address] PHONE #: [phone] FAX #: [phone] ------- Name: YESY CARLOS Loc: W.1200 Q Radiology No: : 1974 Age: 38 Sex: M [place] [facility] [place] No: [id number] Phys: Thomas Borja Acct: [id number] Reason For Exam: G AN ANTICOAGULANT DRUG? N Exam Date: 06/29/2013 EXAMS: CPT CODE: [id number] URETER CTH/STNT PL RAD G 45528 [id number] UROGRAPHY ANTEGRADE 19517 <Continued> CC: Tiffanie Donohue MD; Thomas Sauer MD Technologist: MAREN HERNANDEZ; SHERRY MILLER Transcribed Date/Time: 06/29/2013 ( 2017)Gis Professor: BARTOLOME Printed Date/Time: (7715) BATCH NO: N/A PAGE 2 Signed Report Radiology Report from [facility] on 06/29/2013 13:16:00 DIAGNOSTIC IMAGING REPORT [facility] - [address] [address] PHONE #: [phone] FAX #: [phone] ------- Name: YESY CARLOS Loc: W.1200 Q Radiology No: : 1974 Age: 38 Sex: M Status[place] [facility] No: [id number] Phys: Thomas Borja Acct: [id number] Reason For Exam: G AN ANTICOAGULANT DRUG? N Exam Date: 06/29/2013 EXAMS: CPT CODE: [id number] URETER CTH/STNT PL RAD G 86670 [id number] UROGRAPHY ANTEGRADE 75978 DATE OF EXAM: 06/29/2013 REASON FOR EXAM: Left-sided staghorn calculus. COMPARISON: CT abdomen pelvis dated 2012. The procedure was performed by Dr. Nash. After obtaining informed consent the patient was placed prone on the examination table. A timeout was performed before the start of the procedure. The skin over the left flank was cleaned and prepped in sterile fashion. An appropriate area was marked on the skin using fluoroscopic guidance. Following this 1% lidocaine was used to obtain anesthesia. 20-gauge Chiba needle was inserted into the collecting system with fluoroscopic confirmation (contrast injection ). Following this a 0.018 inch extra stiff guidewire was placed through the needle. The needle was removed over the wire. Subsequently a 4.5 Solomon Islander sheath was placed wire and advanced into the renal pelvis. Berenstein catheter was introduced into the sheath. The thin wire was removed and a 0.038 inch guidewire was advanced through the sheath and catheter and into the proximal ureter. Following this the sheath and catheter were removed. Finally a 6 Solomon Islander ureteral sheath was advanced over the guidewire and into the distal ureter. The wire was then removed. The patient appeared to tolerate the procedure well without immediate complications. IMPRESSION: 1. Successful placement of a left-sided ureteral sheath as described above. Fluoro time: 8.8 minutes. I have personally reviewed these images and approved or corrected the resident physician's interpretation. at 1311 RESIDENT: MARIANA SELLERS MD Reported and signed by: THOMAS NASH MD PAGE 1 Signed Report (CONTINUED) DIAGNOSTIC IMAGING REPORT [facility] - [address] [address] PHONE #: [phone] FAX #: [phone] ------- Name: YESY CARLOS Loc: W.1200 Radiology No: : 1974 Age: 38 Sex: M [place] [facility]: [id number] Phys: JASSJACKIE Dave Thomas Sauer Acct: [id number] Reason For Exam: G AN ANTICOAGULANT DRUG? N Exam Date: 06/29/2013 EXAMS: CPT CODE: [id number] URETER CTH/STNT PL RAD G 73032 [id number] UROGRAPHY ANTEGRADE 90367 <Continued> CC: Tiffanie Donohue MD; Thomas Sauer MD Technologist: MAREN HERNANDEZ; SHERRY MILLER Transcribed Date/Time: 06/29/2013 ( 8760)Gis Professor: BARTOLOME Printed Date/Time: (1105) BATCH NO: N/A PAGE 2 Signed Report Radiology Report from [id number] on 07/29/2013 06:35:00 Final ReportADMITTING DIAGNOSIS: Left renal calculus LT RETROGRADEUROGRAPHY RETROGRADE (SURG) - 07/15/2013 [facility] RESULT: INDICATION: Left retrograde.IMPRESSION: Left ureteral retrograde urography was performed by . 20 mL of Isovue 300 injected.IN: 1003OUT: 1138Actual fluoro time: 1 minute and 9 seconds.KV: 87MA: 5.6Dictated on workstation # [id number] BY: RADIOLOGY PROCESSOR, ELECTRONICALLY SIGNED BY: RADIOLOGY PROCESSORSuzie Jul 16 2013 10:23AT FLO: Jul 29 2013 6:31AS Jul 29 2013 6:31A Radiology Report from [facility] on 07/19/2014 14:25:00 DIAGNOSTIC IMAGING REPORT [facility] - [address] [address] PHONE #: [phone] FAX #: [phone] ------- Name: YESY CARLOS Loc: W.1200 H Radiology No: : 1974 Age: 39 Sex: M [place] [facility] [place] No: [id number] Phys: Carissa Borja MD Acct: [id number] Reason For Exam: NEPH TUBE PLACEMENT Exam Date: 07/19/2014 EXAMS: CPT CODE: [id number] URETER CT/STNT PL RAD G 29420 [id number] UROGRAPHY ANTEGRADE 45070 REASON FOR EXAM: Left renal stones. Placement of left ureteral sheath for stone extraction. COMPARISON: 06/29/2013. Fluoroscopy time: 2.2 minutes. Technique: The procedure was performed by Dr. Nash. The risks, benefits, and alternatives of the procedure were explained to the patient and informed consent was obtained. Prior to the procedure a timeout was performed. The skin over the left flank was cleaned and prepped in sterile fashion. An appropriate area was marked on the skin using fluoroscopic guidance. Lidocaine was used to anesthetize the region. A 21-gauge needle was inserted into the inferior pole the left kidney where the stone burden was present. A small amount of contrast was injected and verified position. Following this a 0.018 inch extra stiff guidewire was placed through the needle. The needle was then removed. Subsequently a 4.5 Solomon Islander sheath was placed wire and advanced into the renal pelvis. Using a combination of a Berenstein catheter, Glidewire, and Super Stiff wire the urinary bladder was accessed. The Super Stiff wire was then left in place in the urinary bladder and a 6 Solomon Islander 35 cm sheath was placed over the Super Stiff wire into the distal left ureter. The wire was removed. The catheter was secured in place. The patient appeared to tolerate the procedure well without immediate complications. IMPRESSION: 1. Placement of left ureteral sheath for stone extraction as above. at 1414 Reported and signed by: THOMAS NASH MD PAGE 1 Signed Report (CONTINUED ) DIAGNOSTIC IMAGING REPORT [facility] - [address] [place] [address] PHONE #: [phone] FAX #: [phone] ------- Name: YESY CARLOS Loc: W.1200 H Radiology No: : 1974 Age: 39 Sex: M [place] [facility] [place] No: [id number] Phys: Carissa Borja MD Acct: [id number] Reason For Exam: NEPH TUBE PLACEMENT Exam Date: 07/19/2014 EXAMS: CPT CODE: [id number] [facility] G 10966 [id number] UROGRAPHY ANTEGRADE 01394 <Continued> CC: Tiffanie Donohue MD; Carissa Sauer MD Technologist: MARILYNN GRANDE; MAREN HERNANDEZ; SHERRY MILLER Transcribed Date/Time: 07/19/2014 (1414) Gis Professor: BARTOLOME Printed Date/Time: 2013 (9246) BATCH NO: N/A PAGE 2 Signed Report Radiology Report from [facility] on 07/19/2014 14:25:00 DIAGNOSTIC IMAGING REPORT [address] [address] PHONE #: [phone] FAX #: [phone] ------- Name: YESY CARLOS Loc: W.1200 H Radiology No: : 1974 Age: 39 Sex: M Status: [facility] [place] No: [id number] Phys: Carissa Borja MD Acct: [id number] Reason For Exam: NEPH TUBE PLACEMENT Exam Date: 07/19/2014 EXAMS: CPT CODE: [id number] URETER CT/STNT PL RAD G 94328 [id number] UROGRAPHY ANTEGRADE 76334 REASON FOR EXAM: Left renal stones. Placement of left ureteral sheath for stone extraction. COMPARISON: 06/29/2013. Fluoroscopy time: 2.2 minutes. Technique: The procedure was performed by Dr. Nash. The risks, benefits, and alternatives of the procedure were explained to the patient and informed consent was obtained. Prior to the procedure a timeout was performed. The skin over the left flank was cleaned and prepped in sterile fashion. An appropriate area was marked on the skin using fluoroscopic guidance. Lidocaine was used to anesthetize the region. A 21-gauge needle was inserted into the inferior pole the left kidney where the stone burden was present. A small amount of contrast was injected and verified position. Following this a 0.018 inch extra stiff guidewire was placed through the needle. The needle was then removed. Subsequently a 4.5 Solomon Islander sheath was placed wire and advanced into the renal pelvis. Using a combination of a Berenstein catheter, Glidewire, and Super Stiff wire the urinary bladder was accessed. The Super Stiff wire was then left in place in the urinary bladder and a 6 Solomon Islander 35 cm sheath was placed over the Super Stiff wire into the distal left ureter. The wire was removed. The catheter was secured in place. The patient appeared to tolerate the procedure well without immediate complications. IMPRESSION: 1. Placement of left ureteral sheath for stone extraction as above. at 1414 Reported and signed by: THOMAS NASH MD PAGE 1 Signed Report (CONTINUED ) DIAGNOSTIC IMAGING REPORT [facility] - [address] [address] PHONE #: [phone] FAX #: [phone] ------- Name: YESY CARLOS Loc: W.1200 H Radiology No: : 1974 Age: 39 Sex: M Status[place] [facility] [place] No: [id number] Phys: Carissa Borja MD Acct: [id number] Reason For Exam: NEPH TUBE PLACEMENT Exam Date: 07/19/2014 EXAMS: CPT CODE: [id number] URETER CT/STNT PL RAD G 62184 [id number] UROGRAPHY ANTEGRADE 71196 <Continued> CC: Tiffanie Donohue MD; Carissa Sauer MD Technologist: MARILYNN GRANDE; MAREN HERNANDEZ; SHERRY MILLER Transcribed Date/Time: 07/19/2014 (5290) Gis Professor: BARTOLOME Printed Date/Time: 2013 (7909) BATCH NO: N/A PAGE 2 Signed Report Radiology Report from [facility] on 08/01/2014 14:09:00 DIAGNOSTIC IMAGING REPORT [facility] - [facility] [address] [place] [address] PHONE #: [phone] FAX #: [phone] ------- Name: YESY CARLOS Loc: JESSICA Radiology No: : 1974 Age: 39 Sex: M Status[place] [facility] [place] No: [id number] Phys: FREDDIE - Carissa Sauer MD Acct: [id number] Reason For Exam: L PER KAE Exam Date: 07/19/2014 EXAMS: CPT CODE: [id number] NEPHRO CATH INJ LT FLUOR 81911 [id number] NEPH/URET DIL LT FLU RAD 93786 Radiologist interpretation was not provided for this study. Please refer to the surgeon's intraoperative report for information regarding intraoperative images. at 1403 Reported by: RODRIGO NORMAN Signed by: RODRIGO NORMAN CC: Tiffanie Donohue MD; Carissa Sauer MD Technologist : JIN JONES Transcribed Date/Time: 08/01/2014 (0942)Gis Professor: [email or web address] Printed Date/Time: 08/01/2014 (0361) BATCH NO: N/A PAGE 1 Signed Report Radiology Report from [facility] on 08/01/2014 14:09:00 DIAGNOSTIC IMAGING REPORT [facility] - [address] [address] PHONE #: [phone] FAX #: [phone] ------- Name: YEYS CARLOS Loc: JESSICA Radiology No: : 1974 Age: 39 Sex: M [place] [facility] [place] No: [id number] Phys: Carissa Borja MD Acct: [id number] Reason For Exam: L PER KAE Exam Date: 07/19/2014 EXAMS: CPT CODE: [id number] NEPHRO CATH INJ LT FLUOR 07932 [id number] NEPH/URET DIL [place] FLU RAD 08850 Radiologist interpretation was not provided for this study. Please refer to the surgeon's intraoperative report for information regarding intraoperative images. at 1404 Reported by: RODRIGO NORMAN Signed by: RODRIGO NORMAN CC: Tiffanie Donohue MD; Carissa Sauer MD Technologist : JIN JONES Transcribed Date/Time: 08/01/2014 (0784)Gis Professor: CORDELIA Printed Date/Time: 08/01/2014 (3911) BATCH NO: N/A PAGE 1 Signed Report Radiology Report from [facility] on 08/04/2014 12:06:00 DIAGNOSTIC IMAGING REPORT [facility] - [address] [address] PHONE #: [phone] FAX #: [phone] ------- Name: YESY CARLOS Loc: JESSICA Radiology No: : 1974 Age: 39 Sex: M [place] [facility] [place] No: [id number] Phys: Carissa Borja MD Acct: [id number] Reason For Exam: LT STENT PLACEMENT/RETROGRADE Exam Date: 08/04/2014 EXAMS: CPT CODE: [id number] ABDOMEN-KUB ONLY 42595 [id number] IMAGE INT/UP TO ONE HOUR 68031 REASON FOR EXAM: LT STENT PLACEMENT/RETROGRADE TIME OF CURRENT STUDY: 08/04/2014 COMPARISON: 07/19/2014 nephrostomy injection Fluoro time 151 seconds 7 images were obtained. On the initial image, there is a ureteral catheter seen in the renal collecting system and contrast filling the calyces, which are dilated, with diffuse blunting of the calyces. On images 4-5 a small, lobulated filling defect is seen in the proximal ureter, likely a stone. Subsequently, a catheter is placed into the renal pelvis and a balloon catheter expanded. A small amount of pyelosinus extravasation is seen. On the final image, the distal aspect of a double-J stent is seen in the bladder. IMPRESSION: 1. Placement of a left double-J stent. 2. Small stone at the ureteropelvic junction on some of the earlier images. at 1156 Reported and signed by: MANDIE SAUCEDA MD CC: Tiffanie Donohue MD; Carissa Sauer MD Technologist: MAHESH DICKSON Transcribed Date/Time: 08/04/2014 ( 0960)Gis Professor: [email or web address] Printed Date/Time: 09/2014 (1418) BATCH NO: N/A PAGE 1 Signed Report Radiology Report from [facility] on 08/04/2014 12:06:00 DIAGNOSTIC IMAGING REPORT [facility] - [address] [address] PHONE #: [phone] FAX #: [phone] ------- Name: YESY CARLOS Loc: JESSICA Radiology No: : 1974 Age: 39 Sex: M [place] [facility] [place] No: [id number] Phys: Carissa Borja MD Acct: [id number] Reason For Exam: LT STENT PLACEMENT/RETROGRADE Exam Date: 08/04/2014 EXAMS: CPT CODE: [id number] ABDOMEN-KUB ONLY 61896 [id number] IMAGE INT/UP TO ONE HOUR 61595 REASON FOR EXAM: LT STENT PLACEMENT/RETROGRADE TIME OF CURRENT STUDY: 08/04/2014 COMPARISON: 07/19/2014 nephrostomy injection Fluoro time 151 seconds 7 images were obtained. On the initial image, there is a ureteral catheter seen in the renal collecting system and contrast filling the calyces, which are dilated, with diffuse blunting of the calyces. On images 4-5 a small, lobulated filling defect is seen in the proximal ureter, likely a stone. Subsequently, a catheter is placed into the renal pelvis and a balloon catheter expanded. A small amount of pyelosinus extravasation is seen. On the final image, the distal aspect of a double-J stent is seen in the bladder. IMPRESSION: 1. Placement of a left double-J stent. 2. Small stone at the ureteropelvic junction on some of the earlier images. at 1156 Reported and signed by: MANDIE SAUCEDA MD CC: Tiffanie Donohue MD; Carissa Sauer MD Technologist: MAHESH DICKSON Transcribed Date/Time: 08/04/2014 ( 1156)Gis Professor: [email or web address] Printed Date/Time: 09/2014 (9044) BATCH NO: N/A PAGE 1 Signed Report Radiology Report from [id number] on 02/01/2016 19:22:00 Reason For ExamAbdominal pain, unspecifiedREPORTINDICATION: Abdominal pain, history of nephrolithiasis.Exam compared with study dated 05/10/2009.FINDINGS: There is a moderate amount of stool in the right upper quadrantpartially obscuring the mid to upper pole of the right kidney. No visualizedright renal stones. There are what appears to be 3 or 4 adjacent tiny stonesprojecting over the lower pole of the left kidney measuring 2.5-3 mm maximal.There are probably some punctate 1 mm stones at the left renal upper pole. Noopaque ureteral stone. No stone at the expected level of the bladder.IMPRESSION: Left-sided nephrolithiasis. No definite right renal stones arefound; however, a moderate amount of stool overlies much of the right kidneylimiting its evaluation. No appreciable ureteral or bladder stone.Dictated on workstation:[id number] Line PRELIMINARY DICTATED BY: MEDINA BRICENO MDDICTATED DT/TM: 01/31 7:15 Radiology Report from [id number] on 10/05/2016 13:32:00 Reason For ExamPain, arm or legREPORTINDICATION: Pain.COMPARISON: NoneFINDINGS: Two views of the left forearm are obtained. No acute fracture, malalignment orosseous destructive process is seen. There is minimal enthesophyte formation ofthe olecranon process.IMPRESSION:No acute abnormality is demonstrated.Dictated on workstation:[id number] Line FINAL DICTATED BY: RJ TURPIN DODICTATED DT/TM: 10/04/2016 11:20 AMSIGNED BY: RJ TURPIN DOSIGNED (ELECTRONIC SIGNATURE): 10/04/2016 4:29 PMTECHNOLOGIST: SUDHIR BARBER Radiology Report from [id number] on 10/24/2016 16:03:00 Reason For Exampossible stone, hx of stonesREPORTINDICATION: Abdominal pain.TECHNIQUE: Noncontrasted axial CT images of the abdomen and pelvis are obtainedwith comparison made to study of 04/03/2015.FINDINGS: There are additional calculi seen within the kidneys, bilaterally.These include an approximately 0.3 cm calculus in the upper pole of the leftkidney and an approximately 0.6 cm calculus in the mid portion of the rightkidney. In addition , there has been enlargement of dependent stones in thelower pole calyces with the largest on the right reaching 0.9 cm in diameter.There is no hydronephrosis. No ureteric calculus is identified. Unenhancedimages of the liver and spleen reveal no focal abnormality. There is noevidence of pancreatic , gallbladder, or adrenal gland abnormality. No freefluid is seen in the abdomen or pelvis. No pathologically enlarged adenopathyis identified. There is mild fluid distention of small bowel in the left upperquadrant.IMPRESSION:1. Increasing size and number of bilateral renal calculi without evidence ofobstructing stone seen in either ureter.2. Fluid-filled small bowel in the left upper quadrant may reflect a componentof ileus.3. Otherwise, no acute abnormality or adverse change is identified.Dictated on workstation: [id number] Line PRELIMINARY DICTATED BY: MEDINA RUCKER MDDICTATED DT/TM: 10/24/2016 3:53 Radiology Report from [id number] on 01/26/2017 19:29:00 Reason For ExamLLQ painREPORTPROCEDURE: CT abdomen and pelvis with contrast.TECHNIQUE: Multiple contiguous axial images were obtained through the abdomenand pelvis after administration of intravenous contrast.INDICATION: Left lower quadrant pain.COMPARISON: CT abdomen and pelvis of 10/24/2016.FINDINGS: Lower chest: The lung bases are clear. No pericardial or pleural effusion.Peritoneum: No free intraperitoneal air or fluid.Liver and biliary system: The liver is normal. The gallbladder is normal. Nobiliary duct dilation.Spleen and Pancreas: Spleen is normal. The pancreas enhances normally withoutmass lesion or peripancreatic inflammatory changes.Adrenals: Normal. tract: There is a 9 mm calculus in the proximal left ureter at the renalpelvis which results in mild left hydronephrosis. In the right kidney, there francia 10 mm nonobstructing calculus in the mid pole. No suspicious mass lesion ineither kidney. Urinary bladder is distended without wall thickening. Prostate isnot enlarged.GI tract: Stomach is decompressed. No bowel obstruction. No pericolonicinflammatory changes. The appendix is likely surgically absent.Vasculature and Lymph nodes: Normal caliber aorta. No abdominal or pelviclymphadenopathy.Musculoskeletal: No concerning osseous lesion.IMPRESSION: 1. There is a 9 mm partially obstructing calculus in the proximal left ureter atthe renal pelvis which results in minimal left hydronephrosis.2. Unchanged 10 mm nonobstructing calculus in the mid right kidney.3. No diverticulitis or bowel obstruction.Tech Comments: IV Contrast Name: oMNIPAQUE 300Contrast amount in ml's: 80Dictated on workstation:[id number] Line PRELIMINARY DICTATED BY: SCOOTER BAPTISTE MDDICTATED DT/TM: 01/26/2017 6: 40 Radiology Report from [id number] on 11/15/2017 21:38:00 Reason For ExamPain, Stone ProtocolREPORTPROCEDURE: CT Abdomen Pelvis without contrast.TECHNIQUE: Multiple contiguous axial images were obtained through the abdomenand pelvis without the use of intravenous contrast.INDICATION: Right flank painThe lung bases are clear. The liver appears normal. The gallbladder is present.There is large amount of food residue in the stomach. Pancreas is normal. Spleenis not enlarged. There are stones in the inferior pole calyces of the leftkidney. There are stones in the inferior pole calyces of the right kidney. Thereis an 8 mm stone in the proximal ureter causing obstruction with hydronephrosisof the right kidney. Intestines appear normal. Urinary bladder and prostateappear normal.IMPRESSION: Bilateral nephrolithiasis. There is an 8 mm obstructing calculus inthe proximal right ureter.Dictated on workstation: [id number] Line PRELIMINARY DICTATED BY: THOMAS MALONEY MDDICTATED DT/TM: 11/15/2017 9:32 Encounters ACCT No. Visit Date/Time Discharge Status Pt. Type Provider Facility Loc./Unit Complaint [id number] 03/24/2017 10:58:00 03/24/2017 23:59:00 DIS Outpatient Narinder Akilah [address] [address] IC ICM fever [id number] 10/24/2016 13:21:00 10/24/2016 23:59:00 DIS Outpatient Nya Mon [facility] IC KIDNEY STONE PAIN [id number] 10/04/2016 10:43:00 10/04/2016 23:59:00 DIS Outpatient Stacy Mao [address] [address] IC ARM PAIN AFTER FALLING ON IT [id number] 08/25/2016 13:09:00 08/25/2016 23:59:00 DIS Outpatient Sheridan Johnna [address] [address] IC left ear pain [id number] 07/15/2016 13:08:00 07/15/2016 23:59:00 DIS Outpatient Sheridan Johnna [address] [address] IC congestion, cough, vomiting [id number] 04/28/2016 18:56:00 04/28/2016 23:59:00 DIS Outpatient Pari Jones [address] [address] IC poison tea [id number] 04/13/2016 09:25:00 04/13/2016 23:59:00 DIS Outpatient Cy''Gia Ramirez [address] [address] IC FELLS BAD [id number] 02/01/2016 18:02:00 02/01/2016 23:59:00 DIS Outpatient Corey Dumont [facility] [place] IC LOWER ABDOMINAL PAIN [id number] 04/03/2015 08:13:00 04/03/2015 23:59:00 DIS Outpatient [facility] IC KIDNEY STONE [id number] 07/04/2014 08:40:00 07/04/2014 23:59:00 DIS Outpatient ZOYA GALVEZ [facility] [place] IC KIDNEY STONE [id number] 01/26/2017 17:22:00 Document Registration [id number] 02/03/2016 11:38:00 Document Registration [id number] 11/18/2017 13:59:00 11/18/2017 17:50:00 DIS Outpatient CARISSA SAUER [facility] with cystoscopy, ureteroscopy, stone manipulation, possible jj-stent placement and stone extraction with HOLMIUM LASER. Dx right ureteral calculus and right renal calculus. [id number] 12/05/2014 11:08:00 12/05/2014 16:00:00 DIS Outpatient Abel MARR, [facility] W.OPRA [id number] 08/04/2014 06:32:00 08/04/2014 11:21:00 DIS Outpatient Abel MARR, [facility] W.OPRA [id number] 07/19/2014 11:01:00 07/20/2014 16:32:00 DIS Outpatient Abel MARR, [facility] W.OPRA [id number] 07/14/2014 09:51:00 07/14/2014 09:51:00 DIS Outpatient Abel MARR, [facility] W.POA [id number] 06/29/2013 09:00:00 07/02/2013 18:51:00 DIS Outpatient Abel MARR, [facility] W.OPRA [id number] 06/23/2013 17:06:00 06/23/2013 17:06:00 DIS Outpatient Alexey Wilkes MD [facility] [id number] 11/27/2017 14:39:02 11/27/2017 23:59:59 CLS Outpatient THOMAS SAUER [id number] 03/22/2018 14:20:00 Document Registration [id number] 03/22/2018 00:00:00 Document Registration [id number] 03/22/2018 00:00:00 Document Registration [id number] 03/30/2017 09:00:00 Document Registration [id number] 03/30/2017 00:00:00 Document Registration [id number] 11/04/2013 07:28:00 11/04/2013 13:05:00 DIS Outpatient Thomas Sauer MD [facility] [id number] 10/29/2013 17:21:00 10/29/2013 18:27:00 DIS Emergency Juarez Guadalupe MD [facility] TERM [id number] 07/15/2013 07:52:00 07/15/2013 14:35:00 DIS Outpatient Abel MARR, Thomas Jimenez [facility] [id number] 02/04/2013 01:05:00 02/04/2013 02:10:00 DIS Emergency Norris Arrieta MD [facility] on [facility] TERM [id number] 07/14/2017 14:40:00 07/15/2017 09:47:00 DIS Outpatient [facility] [id number] 08/24/2018 11:10:02 08/24/2018 23:59:59 CLS Outpatient Gabriela Browning [id number] 11/15/2017 20:26:00 11/15/2017 22:24:00 DIS Emergency Matt Olmstead [facility] ED ABD Pain [id number] 07/14/2017 09:36:00 07/14/2017 12:03:00 DIS Emergency Suzie Spencer [facility] ED Testicle pain [id number] 01/26/2017 17:22:00 01/26/2017 20:33:00 DIS Emergency Tam Matthew [facility] ED abd pain [id number] 01/26/2017 01:14:00 01/26/2017 01:35:00 DIS Emergency Lopez Howard [facility] ED ETOH [id number] 02/03/2016 11:38:00 02/03/2016 14:04:00 DIS Emergency Garret Muñoz [facility] ED left side front abd , side pain [id number] 04/24/2015 16:33:00 04/24/2015 19:22:00 DIS Emergency Tom Lopez MD [facility] ED Facial lac [id number] 03/30/2015 03:01:00 03/30/2015 05:01:00 DIS Emergency Harpreet Cabrera DO [facility] ED back pain, testicular pain [id number] 07/26/2014 13:06:00 07/26/2014 16:20:00 DIS Emergency Dilip Macedo MD [facility] ED ck for kidney stones [id number] 11/16/2017 05:16:12 Document Registration [id number] 07/15/2017 05:17:35 Document Registration [id number] 07/15/2017 05:17:34 Document Registration [id number] 01/27/2017 05:15:50 Document Registration [id number] 10/25/2016 05:15:53 Document Registration [id number] 07/16/2016 05:16:04 Document Registration [id number] 04/29/2016 05:16:21 Document Registration [id number] 04/14/2016 05:16:01 Document Registration [id number] 02/04/2016 05:15:46 Document Registration [id number] 02/02/2016 05:17:14 Document Registration [id number] 05/23/2015 14:04:50 Document Registration [id number] 05/23/2015 14:04:49 Document Registration [id number] 05/23/2015 13:42:48 Document Registration [id number] 05/23/2015 13:35:26 Document Registration [id number] 05/23/2015 12:14:27 Document Registration [id number] 05/23/2015 12:07:17 Document Registration [id number] 05/23/2015 11:33:03 Document Registration [id number] 05/23/2015 11:27:13 Document Registration [id number] 05/23/2015 11:21:05 Document Registration [id number] 05/23/2015 10:49:22 Document Registration [id number] 05/23/2015 10:44:15 Document Registration [id number] 05/23/2015 10:31:33 Document Registration [id number] 12/04/2014 01:22:00 Document Registration
[2018-11-07] MEDS ORDERED: METFORMIN (07:23)
--- NOTE | 2018-11-07 07:23 | NUR ---
PT UNSURE OF THE DOSE OF HIS METFORMIN, CALLED HIS BUT SHE DID NOT ANSWER.
--- NOTE | 2018-11-07 07:24 | ED General ---
General Chief Complaint: Glucose Problems Stated Complaint: DIABETIC PROBLEMS Nursing Triage Note: PT [place] AND FORGOT HIS METFORMIN, HAVEN'T TAKEN SINCE THURSDAY MORNING, WEAK, TIRED, A LITTLE NAUSEA, AND SHAKEY. Nursing Sepsis Screen: No Definite Risk Source of Information: Patient Exam Limitations: No Limitations History of Present Illness Date Seen by Provider: Nov 07, 2018 Time Seen by Provider: 06:51 Initial Comments This 43-year-old gentleman presents to the emergency room with complaints of feeling fatigued and "zoned out" this morning. He had a very difficult time waking up. He lives in [place] and drove to [place] on November 05 for his [employer] drill. He left his metformin and glucometer at home. He has not checked his blood sugar since arriving. He has been engaged in strenuous activity as part of his drill exercises. He denies any nausea, vomiting, diarrhea, shortness of breath, cough, fever, polyuria, dysuria, or other acute symptoms. He has only been taking metformin for a few months. He was recently diagnosed with diabetes. Before taking metformin his blood sugars were as high as 500. Fingerstick blood sugar this morning is 151. Allergies and Home Medications Allergies Coded Allergies: Penicillins (Verified Allergy, Intermediate, 11/07/18) meperidine (Verified Allergy, Intermediate, 11/07/18) Patient Home Medication List Home Medication List Reviewed: Yes Review of Systems Review of Systems Constitutional: see HPI EENTM: no symptoms reported Respiratory: no symptoms reported Cardiovascular: no symptoms reported Gastrointestinal: no symptoms reported Genitourinary: no symptoms reported Musculoskeletal: no symptoms reported Skin: no symptoms reported Psychiatric/Neurological: No Symptoms Reported Past Djizqcv-[id number]-Lupjay Hx Past Med/Social Hx: Reviewed and Corrections made Patient Social History Recent Foreign Travel: No Contact w/Someone Who Travel: No Recent Infectious Disease Expo: No Past Medical History Surgeries: Yes Renal (lithotripsy) Respiratory: No Cardiac: No Neurological: No Reproductive Disorders: No Genitourinary: Yes Kidney Stones Gastrointestinal: No Musculoskeletal: No Endocrine: Yes Diabetes, Non-Insulin dep HEENT: No Cancer: No Psychosocial: No Physical Exam Vital Signs Vital Signs - First Documented 11/07/18 07:07 Temp 96.1 Pulse 80 Resp 20 B/P (MAP) 128/92 (104) Pulse Ox 99 O2 Delivery Room Air Capillary Refill : Less Than 3 Seconds Height, Weight, BMI Height: 5'11.00" Weight: 214lbs. oz. 97.487930nc; BMI Method:Stated General Appearance: No Apparent Distress, WD/WN HEENT: PERRL/EOMI, Normal ENT Inspection, Other (mucous membranes somewhat dry) Neck: Normal Inspection Respiratory: Lungs Clear, Normal Breath Sounds, No Accessory Muscle Use, No Respiratory Distress Cardiovascular: Regular Rate, Rhythm, No Edema, No Murmur Gastrointestinal: Non Tender, Soft Extremity: Normal Inspection, No Pedal Edema Neurologic/Psychiatric: Alert, Oriented x3, No Motor/Sensory Deficits, Normal Mood/Affect, midwife practitioner II-XII Norm as Tested Skin: Normal Color, Warm/Dry Progress/Results/Core Measures Suspected Sepsis Recent Fever Within 48 Hours: No Infection Criteria Present: None New/Unexplained Altered Menta: No Sepsis Screen: No Definite Risk SIRS Temperature:96.1 Pulse: 80 Respiratory Rate: 20 Blood Pressure 128 /92 Mean: 104 Results/Orders Lab Results Laboratory Tests Test 11/07/18 07:14 Range/Units Glucometer 151 H 70-110 MG/DL My Orders Orders - SHLOMO CARRILLO MD Metformin Tablet (Glucophage Tablet) (11/07/18 07:30) Vital Signs/I&O 11/07/18 07:07 Temp 96.1 Pulse 80 Resp 20 B/P (MAP) 128/92 (104) Pulse Ox 99 O2 Delivery Room Air Capillary Refill : Less Than 3 Seconds Blood Pressure Mean: 104 Progress Note : Progress Note Fingerstick blood sugar was 151. Vital signs were normal. Patient was offered further workup with blood work and urinalysis. He was also offered IV hydration. He declines since his vital signs are normal. He was given a dose of metformin 500 mg and started orally hydrating in the ER. A note to return to drill later this morning was provided. Departure Impression Primary Impression: Fatigue Qualified Codes: R53.83 - Other fatigue Additional Impression: Diabetes type 2, controlled Qualified Codes: E11.9 - Type 2 diabetes mellitus without complications Disposition: HOME, SELF-CARE Condition: Improved Departure-Patient Inst. Decision time for Depature: 07:20 Patient Instructions: Type 2 Diabetes Add. Discharge Instructions: Drink plenty of clear liquids today. Resume your medications as previously prescribed. Eat a well-balanced diet low in sugar. Return to care if symptoms worsen. Monitor your blood sugars at home. Checks them fasting in the morning and 2 hours after at least one meal per day. Follow-up with your primary care provider and review blood sugars as soon as possible. All discharge instructions reviewed with patient and/or family. Voiced understanding. Work/School Note: Work Release Form Date Seen in the Emergency Department: Nov 07, 2018 Return to Work: Nov 07, 2018 Other Restrictions Listed Below: May return to drill after 10:00 and participate as tolerated. SHLOMO CARRILLO MD Nov 07, 2018 07:24
[2018-11-07] MEDS ORDERED: metFORMIN 500 MG (GLUCOPHAGE) TAB PO ONE (07:30)
[2018-11-07 07:51] VITALS: BP 128/92
== END 2018-11-07 07:51 | disposition home or self-care (01) ==
LOC: ER 06:51
DX: R53.83 Other fatigue (principal); E11.9 Type 2 diabetes mellitus without complications; Z88.0 Allergy status to penicillin; Z88.8 Allergy status to other drugs, medicaments and biological substances; Z87.442 Personal history of urinary calculi
CPT/HCPCS: 82962